=== PATIENT | male | born 1935 | race Caucasian/White ===

== ENCOUNTER → 2018-02-16 | Day surgery (SDC) | payer MEDICARE, OTHER, SELFPAY | END | disposition home or self-care (01) | PROVIDERS: Family Provider Family Medicine; PCP Family Medicine; Visit Provider Ophthalmology | DX: H25.11 Age-related nuclear cataract, right eye (principal); I10 Essential (primary) hypertension; Z53.09 Procedure and treatment not carried out because of other contraindication | CPT/HCPCS: 66984 ==

== ENCOUNTER → 2019-06-20 11:41 | Outpatient (CLI) | payer MEDICARE, OTHER, SELFPAY ==
--- NOTE | 2019-06-20 | DI.US.S_ITS ---
PROCEDURE: US RENAL COMPLETE INDICATIONS: Chronic kidney disease, stage 3 (moderate) TECHNIQUE: Real-time scanning was performed of the kidneys and bladder, with image documentation. COMPARISON: None. FINDINGS: Kidneys: Kidneys are normal in size. Right kidney measures 9.4 cm long; left kidney measures 10.8 cm long. Right renal cortical thickness is 1.4 cm; left renal cortical thickness is 1.2 cm. Renal cortical echotexture is increased bilaterally. No hydronephrosis or nephrolithiasis. No suspicious solid mass lesions. Bilateral renal cyst, largest which is on the right measuring up to 6.6 cm. Bladder: Pre-void bladder volume is 163 mL. Post-void residual is 0 mL. Pre-void images demonstrate no intraluminal masses or stones. On pre-void images, bilateral ureteral jets are noted with color Doppler interrogation. (Of note, ureteral jets may not be detectable in up to 25% of cases due to insufficient differences in specific gravity between ureteral and bladder urine). Miscellaneous: No free pelvic fluid. IMPRESSION: 1. Increased renal cortical echogenicity bilaterally consistent with medical renal disease and there are bilateral renal cysts. Dictated by: Giovany MILLER Interpreted: Chuckie Oh MD on 06/20/2019 at 13:22 Approved by: Chuckie Oh M.D. on 06/20/2019 at 14:24
== END ==
PROVIDERS: Family Provider Family Medicine; PCP Family Medicine; Visit Provider Internal Medicine Nephrology
DX: N18.3 Chronic kidney disease, stage 3 (moderate) (principal)
CPT/HCPCS: 76770

== ENCOUNTER → 2019-12-05 13:13 | Outpatient (CLI) | payer MEDICARE, OTHER, SELFPAY ==
--- NOTE | 2019-12-05 | DI.RAD.S_ITS ---
PROCEDURE: XR HIP W PEL IF DONE RT 2V INDICATIONS: PAIN IN HIP TECHNIQUE: 2 view(s) of the hip acquired. COMPARISON: None. FINDINGS: Bones: Patient is status post right hip arthroplasty, with hardware components in expected positions. The hip joint appears congruent. The visualized bony structures appear intact. Soft tissues: Overlying postoperative changes are noted. No suspicious soft tissue densities. IMPRESSION: Status post right hip arthroplasty without acute hardware complication. Dictated by: Km Gonzalez M.D. on 12/05/2019 at 17:15 Approved by: Km Gonzalez M.D. on 12/05/2019 at 17:15
== END ==
PROVIDERS: Family Provider Family Medicine; PCP Family Medicine; Referring Provider Nurse Practitioner; Visit Provider Nurse Practitioner
DX: M25.551 Pain in right hip (principal); Z96.641 Presence of right artificial hip joint
CPT/HCPCS: 73502

== ENCOUNTER → 2019-12-07 11:55 | Outpatient (CLI) | payer MEDICARE, OTHER, SELFPAY ==
--- NOTE | 2019-12-07 | DI.RAD.S_ITS ---
PROCEDURE: XR TOE LT MIN 2V INDICATIONS: left 2nd toe injury TECHNIQUE: 3 views of the left toe(s) acquired. COMPARISON: None. FINDINGS: Bones: No fractures or dislocations. No suspicious bony lesions. Diffuse osteopenia and scattered interphalangeal joint degeneration. Marginal lucency seen at the first MTP joint, technically age-indeterminate. Soft tissues: No suspicious soft tissue densities. Scattered vascular calcifications. IMPRESSION: No fracture. If the patient's symptoms do not improve recommend followup radiographs in 10 days to assess for healing sclerosis/occult injury, versus cross-sectional imaging evaluation. Decreased study diagnostic sensitivity due to diffuse osteopenia and arthritic changes. Dictated by: Froylan Hodgson M.D. on 12/07/2019 at 17:18 Approved by: Froylan Hodgson M.D. on 12/07/2019 at 17:21
== END ==
PROVIDERS: Family Provider Family Medicine; PCP Family Medicine; Referring Provider Nurse Practitioner; Visit Provider Nurse Practitioner
DX: S99.922A Unspecified injury of left foot, initial encounter (principal); M85.872 Other specified disorders of bone density and structure, left ankle and foot; X58.XXXA Exposure to other specified factors, initial encounter
CPT/HCPCS: 73660

== ENCOUNTER → 2019-12-19 09:10 | Outpatient (CLI) | payer SELFPAY ==
--- NOTE | 2019-12-19 | DI.US.S_ITS ---
PROCEDURE: US PERIPH VENOUS LOW EXTREM RT INDICATIONS: POSSIBLE DVT TECHNIQUE: Real-time imaging, as well as color and pulse Doppler interrogation, were performed of the lower extremity deep veins from the inguinal ligament to the popliteal fossa. COMPARISON: None. FINDINGS: The common femoral, femoral and popliteal veins are normally compressible, and free of intraluminal thrombus. Color and pulse Doppler demonstrate normal phasic intraluminal flow. There is normal augmentation response to distal compression maneuver. IMPRESSION: No DVT found. Dictated by: Chuckie Oh M.D. on 12/19/2019 at 10:27 Approved by: Chuckie Oh M.D. on 12/19/2019 at 11:11
== END ==
PROVIDERS: Family Provider Family Medicine; PCP Family Medicine; Referring Provider Family Medicine; Visit Provider Internal Medicine
DX: I82.401 Acute embolism and thrombosis of unspecified deep veins of right lower extremity (principal)
CPT/HCPCS: 73502; 93971

== ENCOUNTER 2020-06-06 06:12 | Inpatient (IN) | payer MEDICARE, OTHER, SELFPAY ==
[2020-06-05 11:44] VITALS: BMI 25.2
[2020-06-06] VITALS (23 sets, daily range): BP systolic 79–130; BP diastolic 44–81; PULSE 43–62; RESP 10–18; TEMP 35.3–36.4; O2SAT 93–100; BMI 24.6
--- NOTE | 2020-06-06 | DI.RAD.S_ITS ---
PROCEDURE: XR LUMBAR SPINE 2-3V INDICATIONS: L3-S1 LAMINECTOMIES ANTERIOR / POST INSTRUMENTATION TECHNIQUE: 2 views of the lumbar spine were acquired. COMPARISON: [facility], CR, XR LUMBAR SPINE 2 OR 3 VIEWS, 04/15/2020, 14:29. [facility], MR, MR LUMBAR SPINE WITHOUT CONTRAST, 03/15/2020, 13:36. FINDINGS: There is laminectomy, discectomy and posterior fusion at L3-S1. Pedicular screws and fusion rods are in expected position. IMPRESSION: Laminectomy, discectomy and posterior fusion at L3-S1. Dictated by: Chele De La Rosa M.D. on 06/06/2020 at 13:43 Approved by: Chele De La Rosa M.D. on 06/06/2020 at 13:44
[2020-06-06] MEDS: LACTATED RINGERS 1,000 ML 42 ML IV ×3 (07:00→12:09)
--- NOTE | 2020-06-06 07:03 | PM.PREOP ---
Pre-operative Note COVID-19 COVID-19 status: Negative Result date/Date tested (Pos, Neg/Pending): 06/04/20 Interval Note History & Physical reviewed/Exam performed by Physician: Yes Changes to H&P: No
[2020-06-06] MEDS: CEFAZOLIN 2 GM/100 ML FROZ.PIGGY IV ×3 (07:52→21:12)
--- NOTE | 2020-06-06 08:38 | SUR.OPER ---
Right lateral on padded OR table. Head on pillow, gel axillary roll, pillow to support left arm. Legs flexed, pillows between legs, gel pad under down leg and ankle. Multiple passes of 3 inch cloth tape across shoulder, hip, upper and lower legs to secure patient on OR table.
--- NOTE | 2020-06-06 08:38 | SUR.OPER ---
Prone on spine table, head in foam head support, padded chest and pelvic supports, gel pad at knees, lower legs supported by pillows; nipples, genitalia and toes free of pressure, arms secured on foam padded arm boards at <90 degrees abduction. Tape over blanket at thigh secured to table.
[2020-06-06] MEDS: SODIUM CHLORIDE 0.9% 1,000 ML, GENTAMICIN 80 MG IRR (08:49)
[2020-06-06] MEDS: VANCOMYCIN 1,000 MG VIAL 1000 MG TOP (08:50)
[2020-06-06] MEDS: BUPIVACAINE 0.5% (PF) 4 ML, MORPHINE-PF 4 MG, BUTORPHANOL 1 MG, fentaNYL 100 MCG INJ (08:51)
[2020-06-06] MEDS: THROMBIN (RECOMBINANT) 5,000 UNIT VIAL 5000 UNIT TOP (08:53)
--- NOTE | 2020-06-06 12:57 | P.OP_ITS ---
Operative Date/Time/Diagnoses Date of procedure: 06/06/20 Time of procedure: 12:57 Pre-op diagnosis: Lumbar stenosis with radiculopathy Lumbar spondylolisthesis Post-op diagnosis: same Procedure & Clinicians Procedure: L3-4, L4-5 anterior fusion with cages L5-S1 TLIF (posterior/posterior interbody fusion) with cage L3-L4-L5-S1 screws Iliac crest bone graft aspirate L3-4, L4-5, L5-S1 laminectomies Use of microscope Placement of epidural catheter Same procedure as scheduled: Yes Indications: [age] year old male with intractable pain from stenosis. They had failed conservative management and requested operative intervention. Risks and benefits of surgery were discussed and appropriate consents were obtained. Surgeon: Freddie Farooq Clinical Product Manager: Marie Najera Anesthesia Type: General Operative Notes Findings: None Closure Type: primary Specimen(s): none sent Prosthetic devices, grafts, tissues, transplants, or devices: NuVasive XLIF cages and MAS Reline screws Globus Sable cage Applied: catheter Estimated Blood Loss (mL): 50 Blood products transfused: none Procedure in detail: Patient was brought to the operating room and intubated on the table. Time-out was performed. They were then rolled over to the lateral decubitus position with the [id number]. The table was bent and they were taped down in the correct position. X-rays were taken to confirm a true AP and lateral. Preoperative antibiotics were given. The left flank was prepped and draped in standard sterile fashion. Using fluoroscopy, a 3 cm incision was made above the iliac crest. We bluntly dissected down with Metzenbaum scissors and split the 3 abdominal muscle layers. We dissected out the retroperitoneal space and using finger guidance, brought our 1st dilator down to the psoas muscle. Using neuromonitoring and fluoroscopy, we placed it through the psoas onto the L4-5 disc space in an anterior position and gradually pulled the dilator posteriorly along the disc space. We placed our guidewire and measured our depth for the retractor. We then dilated with the next 2 dilators and then placed our retractor over the dilators. Position was confirmed with fluoroscopy and the retractor was locked down to the bar. We opened up the retractor and checked with neuro monitoring. We then placed the britni and again checked with neuro monitoring. The retractor was opened further and the ALL retractor was placed. An annulotomy was performed. We then performed a complete diskectomy with ring curette, pituitary, box osteotome. A Dc was advanced across the disc space under fluoroscopy to release the lateral annulus on the opposite side. We then used sequentially larger trials and confirmed under fluoroscopy. An XLIF cage was packed with Osteocel bone graft and impacted into the L4-5 disc space with fluoroscopy for the anterior fusion at this level. The wound was irrigated. The retractor was closed down. The britni was removed. We carefully removed the retractor with direct visualization to make sure there was no neurovascular or abdominal injury. We then moved our dilator up to the L3-4 level. We again dilated with neural monitoring and fluoro. We opened up the retractor and placed our Britni. A complete diskectomy was performed including lateral release. We trialed and placed another cage with bone graft into the L3-4 anterior disc space for the anterior fusion at L3-4. The wound was irrigated. The retractor was removed under direct visualization. Final x-rays were taken. The muscle fascia was closed, superficial tissue was closed. The skin was close d. Sterile dressing was placed. The patient was then rolled over on the well- padded prone position on the Wilfredo table. Using fluoroscopy for localization, a 8 cm incision was made to the right of the midline. Bovie used to split the lumbodorsal fascia. We then percutaneously placed Jamshidi needles down the right pedicles of L3, L4, L5, and S1 using fluoroscopy and neural monitoring. These were changed out to guidewires and then tapped and the screw shanks were placed. We opened up the retractor at L5-S1. We cleared out the gutter and decorticated the L5 transverse process and the sacral ala with a bur. We cleared medially and exposed the lamina. We brought in the microscope. Using a bur and Kerrison rongeur is, a laminectomy was performed at L5-S1. We performed a facetectomy to be able to decompress the neural foramen adequately. At the end we could sweep the ball probe cephalad, through the foramen, caudally and across the midline and everything was adequately opened. We then began the prep for the TLIF. The remaining edges of the facet were cleared back. The dura was retracted medially and the exiting nerve root was carefully protected. We exposed the disc in cleared out with bipolar. A stab incision was made with a scalpel. We removed the posterior osteophytes with a Kerrison. We then placed our sequentially larger paddles into the disc space disc retracting it open. We used curettes and pituitaries to clear the endplates. Bone graft was placed into the disc space. We then placed our globus Sable cage using fluoroscopic guidance and then expanded it under fluoroscopy. We then back filled with additional bone graft. This completed the posterior interbody portion of the TLIF at L5-S1. We then moved our retractors up to L4-5. The gutter was cleared out and the L4 transverse process was decorticated. Again a combination of bur and Kerrisons were used to perform a complete laminectomy at L4-5. We depressed the dura and reach the opposite side and removed the facet and ligamentous hypertrophy. In the end the ball probe could be swept cephalad caudally and out the foramen and it was open. We then went up to the L3-4 level and opened up her retractors. Again the gutter was cleared of the transverse process of L3 was decorticated. Again a combination of bur and Kerrisons were used to perform a complete laminectomy at L3-4. We depressed the dura and reach to the opposite side to clear this out. In the end the ball probe to swept cephalad and caudally and out to the foramen and everything was open. The wound was copiously irrigated. An epidural catheter was primed with 4mL of 0.5% bupivacaine, 100 mcg fentanyl, 4 mg Duramorph, 1 mg Stadol. The dura was depressed under the cephalad lamina with a ball probe and the epidural catheter was gently advanced 6 cm cephalad. We then placed our screw heads on the shanks. Boris was measured and placed and locked down. A small stab incision was made over the right PSIS. A Jamshidi needle was inserted into the pelvis and 6 mL of bone marrow aspirate was removed with multiple passes. This was mixed with the locally harvested graft plus the remaining Osteocel and placed in the gutter for the posterior fusion at L3-4 and L4-5 as well as the posterolateral portion of the TLIF at L5-S1. The fascia was then closed. The epidural was then injected without resistance. The catheter was pulled and we closed more over the fascia. Using fluoroscopy, a 8 cm incision was made on the left side. Bovie used to split the fascia. We then percutaneously placed Jamshidi needles down the ped icles of L3, L4, L5, and S1 on the left using fluoroscopy and neural monitoring. We used guidewires and then tapped and placed our screws. We measured and placed down our boris and locked it down. Final x-rays were taken. The wounds were irrigated. The fascia was closed. Vancomycin powder was placed in the wounds. The superficial and skin were closed. Sterile dressing was placed. The patient was then rolled over, extubated, brought to the recovery room with no complications. Complications: none Post-operative Condition: stable Disposition: PACU Plan for aftercare: Inpatient. Up with PT. Anticipate 3 days in the hospital.
--- NOTE | 2020-06-06 13:43 | SUR.PHASEI ---
After multiple attempts with two different thermometers, still unable to obtain a temperature over 96. Placed bear hugger to patient.
--- NOTE | 2020-06-06 13:55 | SUR.PHASEI ---
Patient more responsive. Oral airway removed. Patient following commands. Temporal temperature up to 96.9 now. HR 52, Bp 115/62
--- NOTE | 2020-06-06 15:25 | PC.NURSE ---
Patient to floor at 1455, tucked in and vss. Report passed onto jordy RN.
--- NOTE | 2020-06-06 19:25 | PC.NURSE ---
Addendum entered by Yolanda Epps R.N. 06/06/20 22:25: Pt resting quietly this evening. States only slight discomfort at times, declines any med. IVF infusing as per orders. Satisfactory post op course. Call light w/in reach, bed alarm on for pt safety. Continue w/plan of care. Original Note: Pt resting quietly this afternoon. Dsg to back & lft flank intact. SpO2 97% RA [place] cath patent clear urine Stable post op course.
[2020-06-06] MEDS: LACTATED RINGERS 1,000 ML 125 ML IV (19:37)
[2020-06-06] MEDS: ATORVASTATIN 20 MG TABLET PO (19:41)
[2020-06-06] MEDS: AMLODIPINE 5 MG TABLET PO (19:41)
[2020-06-06] MEDS: CELECOXIB 200 MG CAPSULE 400 MG PO (19:41)
[2020-06-06] MEDS: METOPROLOL ER 25 MG TABLET PO (19:44)
[2020-06-06] MEDS: GABAPENTIN 300 MG CAPSULE PO (21:03)
[2020-06-06] MEDS: SENNOSIDES 8.6 MG TABLET 17.2 MG PO (21:03)
[2020-06-06] MEDS: DOCUSATE 100 MG CAPSULE PO (21:03)
[2020-06-06] MEDS: CELECOXIB 200 MG CAPSULE PO (22:31)
[2020-06-06] MEDS: TIMOLOL 0.5% OPHTH 1 DROPS EYE-BOTH (22:35)
--- NOTE | 2020-06-07 01:31 | PC.NURSE ---
Patient seen and assessed at 0017. Is alert and oriented. Breath sounds CTA with RA sat of 99%; on continuous oximetry. HRR. Denies nausea. BT present but has not yet passed flatus since return from surgery. Indwelling catheter is patent; urine is clear yellow. Is able to turn with assistance but prefers to be on back. Dressing to back is intact but mostly saturated with serosanguinous drainage; no leakage. Dressing to left hip is intact with dime size area of brown drainage. Has dark skin on bilateral forearms with bruising. CMS is intact. Denies pain. Bilateral calf SCD's applied. Fall risk score is moderate; bed alarm is activated.
[2020-06-07 03:19] VITALS: BP 107/55; PULSE 71; RESP 16; TEMP 36.2; O2SAT 100
[2020-06-07] MEDS: LACTATED RINGERS 1,000 ML 125 ML IV (03:22)
[2020-06-07] MEDS: CEFAZOLIN 2 GM/100 ML FROZ.PIGGY IV (04:59)
[2020-06-07 06:17] LABS: Hematocrit 26.5 % (41-53); Hemoglobin 8.8 g/dL (13.5-17.5)
[2020-06-07 06:22] LABS: Blood Urea Nitrogen 50 mg/dL (9-20); Calcium 8.7 mg/dL (8.4-10.2); Carbon Dioxide 19 mmol/L (22-32); Chloride 111 mmol/L (98-107); Estimated Glomerular Filt Rate 29.2 mL/min (>60); Glucose 172 mg/dL (80-110); HEMOLYSIS < 15 (0-50); Potassium 4.8 mmol/L (3.4-5.1); Sodium 135 mmol/L (137-145)
--- NOTE | 2020-06-07 08:34 | CM.IDA ---
Addendum entered by GEOFF Petersen 06/07/20 15:37: PT recommending home w/spouse to assist and patient eager to do so. No needs expected from this PUBLICATION SPECIALIST but will follow closely in case any DC needs or concerns arise. DENINS Original Note: Initial DCP Assessment Note Pt is a 85yo male, resident of [place], now POD#1 from spinal surgery w/ Dr Farooq PCP: Stanley Marsh Payer: GANGA/Jody Reviewed chart. Therapy pending this morning, pt has planned for home w/spouse Giana (), . This PUBLICATION SPECIALIST following closely and will plan to assess needs once therapy has an opportunity to eval. GEOFF Petersen
[2020-06-07 08:37] VITALS: BP 118/67; PULSE 64; RESP 15; TEMP 36.6; O2SAT 98
--- NOTE | 2020-06-07 08:46 | PM.PNPO.1 ---
Subjective Subjective Date Patient Seen: 06/07/20 Time Patient Seen: 08:46 Interval history: He is doing well. Minimal pain. Has not been up yet. Exam Vital Signs (past 8 hours): - 06/07/20 03:19 Temperature 97.2 F L Pulse Rate 71 Respiratory Rate 16 Blood Pressure 107/55 L Pulse Oximetry 100 Oxygen Delivery Method Room Air Oxygen Flow Rate 0 Const Orientation: alert and oriented x3 Back/Spine/Pelvis Other: Moderate drainage. 5/5 motor both lower extremities. Objective Labs Result Diagrams: 06/07/20 05:50 06/07/20 05:50 Labs: Laboratory Results - last 24 hr 06/07/20 06/07/20 05:50 05:50 Hgb 8.8 L Hct 26.5 L Sodium 135 L Potassium 4.8 Chloride 111 H Carbon Dioxide 19 L BUN 50 H Creatinine 2.17 H Estimated GFR 29.2 L BUN/Creatinine Ratio 23.0 H Glucose 172 H Calcium 8.7 Assessment & Plan Post-op Postoperative Procedures: Procedures Operation Date: 06/06/20 07:45 Actual Procedures Side Surgeon p L3-S1 laminectomies & anterior/posterior instrumentated fusion w/ bone graft Freddie Farooq MD Doing well after his laminectomy and fusion. Mobilize today with physical therapy. He has some postoperative acute blood loss anemia and we will recheck his H&H in the morning. He is asymptomatic from this right now.
[2020-06-07] MEDS: TIMOLOL 0.5% OPHTH 1 DROPS EYE-BOTH ×2 (09:04→20:14)
[2020-06-07] MEDS: METOPROLOL ER 25 MG TABLET PO (09:05)
[2020-06-07] MEDS: CYANOCOBALAMIN (VITAMIN B-12) 500 MCG TABLET 1000 MCG PO (09:05)
[2020-06-07] MEDS: CELECOXIB 200 MG CAPSULE PO ×2 (09:05→20:09)
[2020-06-07] MEDS: allopurinoL 300 MG TABLET PO (09:05)
[2020-06-07] MEDS: hydroCHLOROthiazide 12.5 MG CAPSULE PO (09:05)
[2020-06-07] MEDS: AMLODIPINE 5 MG TABLET PO (09:05)
[2020-06-07] MEDS: DOCUSATE 100 MG CAPSULE PO ×2 (09:05→20:08)
[2020-06-07] MEDS: lisinopriL 20 MG TABLET PO (09:05)
[2020-06-07] MEDS: CHOLECALCIFEROL (VITAMIN D3) 1,000 UNIT TABLET 1000 UNIT PO (09:06)
[2020-06-07] MEDS: HYDROCODONE/ACET 5/325 TABLET 1 TAB PO ×3 (09:07→20:08)
--- NOTE | 2020-06-07 11:00 | PT.IIE ---
Current Diagnoses Spondylolisthesis, lumbar region (06/06/20) Spinal stenosis, lumbar region with neurogenic claudication (06/06/20) Surgery Performed Operation Date: 06/06/20 07:45 Actual Procedures p L3-S1 laminectomies & anterior/posterior instrumentated fusion w/ bone graft - Freddie Farooq MD Surgical History (This Medical Record has been edited. Action required.) History of right cataract extraction (Acute) Hx of heart artery stent (Acute ~01/2010) Hx of prostatectomy (Acute ~2004) Medical History (This Medical Record has been edited. Action required.) Acute DVT (deep venous thrombosis) (Acute 11/2019) CKD (chronic kidney disease), stage IV (Acute) Hip fracture, right (Acute ~11/2019) Prostate cancer (Acute) Physical Therapy Inpatient Evaluation/Re-Eval M1 PT/OT-IP Prior Functional Status Start: 06/07/20 13:24 Freq: NEEDED Status: Active Protocol: Document 06/07/20 11:00 AB (Rec: 06/07/20 13:37 AB [id number]) Medical Review Prior Functional Status Medical History Reviewed Yes Communication able to make needs known Mobility and Gait pt stated that he is independent with all mobilities and ambulation without AD Social History Household Members spouse Living Arrangements House Number of Floors (Floors) One Floor Number of Stairs To Enter/Railing? 2 steps L rail to enter Home Environment Standard Height Toilet,Tub/ Shower Home Equipment Front Wheel Walker,Four Wheel Walker,Quad Cane,Straight Cane ,Bedside Commode,Hand Held Shower Additional Social History Comment lives in [place] [id number] PT-IP Current Condition Start: 06/07/20 13:24 Freq: NEEDED Status: Active Protocol: Document 06/07/20 11:00 AB (Rec: 06/07/20 13:37 AB [id number]) Physical Therapy Current Condition Current Condition Evaluation Date 06/07/20 Treatment Diagnosis s/p L3-4, L4-5 anterior fusion ; L5S1 TLIF; difficulty in walking Onset Date 06/06/20 Precautions Lumbar Precautions Log Roll,No Twisting,Limit Bending,Lifting Restriction of 10 lbs,Gait Belt above Incisional Area M3 PT-IP Subjective Start: 06/07/20 13:24 Freq: NEEDED Status: Active Protocol: Document 06/07/20 11:00 AB (Rec: 06/07/20 13:37 [id number]) Subjective Physical Therapy Visit Type Type Initial Evaluation Visit Start Time 11:00 Visit Stop Time 11:50 Total Visit Minutes 50 Number of HEAD OF STOCK Visits 0 Physical Therapy Visit Comments Patient Comments agreeable to do PT Therapy Pain Assessment Pain When Pain Assessed At Rest Pain Present Pain Present Pain Reported Location Lower Back Intensity 1 Scale Used increase 3/10 with mobility Pain Management Techniques Modification of Treatment,Re- positioning,Timing of Activity with Medications M4 PT-IP Mobility and Gait Start: 06/07/20 13:24 Freq: NEEDED Status: Active Protocol: Document 06/07/20 11:00 AB (Rec: 06/07/20 13:37 [id number]) PT-Bed Mobility Assessment Rolling Type of Rolling Log Rolling Level of Assist Standby Assistance Supine to Sit Supine to Sit Standby Assistance PT-Transfer Assessment Sit to and From Stand Sit to and from Stand Minimal Assistance,1 Person Assistance,Use of Upper Extremities Equipment Transfer Assistive Device Gait Belt,Front Wheeled Walker Orthotic/Prosthetic Devices or Brace: No Transfers Transfer Destination Chair Transfer Technique ambulated using FWW Transfer Ability Level of Assist Minimal Assistance,1 Person Assistance,Use of Upper Extremities Comments Mobility Comments educated pt on back precautions and log roll bed mobility. BP in supine: 118/ 72. completed supine to sit with cues SBA. pt was able to sit on EOB SBA. c/o dizziness. BP: 125/57 . completed sit to stand min A and cues and ambulated to the chair using FWW min A. pt rested. BP after ambulation: 132/76. pt agreed to ambulate more and completed ~ 35 ft using FWW min A and cues. pt agreed to sit up on chair. positioned on chair. call light and table placed within reach. Gait Assessment Gait Gait Assistance Required: Minimum Assistance Distance (Feet) 35 Able to Maintain Weight Bearing Status Yes During Gait Assistive Devices Assistive Device Gait Belt,Front Wheeled Walker Orthotic/Prosthetic Devices or Brace: No Gait Deviations General Gait Pattern Antalgic,Decreased Stride Length,Decreased Feet Clearance Factors Limiting Gait Function Factors Limiting Gait Function Decreased Activity Tolerance, Decreased Strength,Limited Range of Motion,Pain,Poor Balance Comments Gait Comments pls refer to mobility section for details PT-Balance Assessment Sitting Balance and Reactions Static Sitting Balance Ability Good Dynamic Sitting Balance Ability Good Standing Balance and Reactions Static Standing Balance Ability Fair Dynamic Standing Balance Ability Fair Device Used FWW M5 PT-IP Objective Assessments Start: 06/07/20 13:24 Freq: NEEDED Status: Active Protocol: Document 06/07/20 11:00 AB (Rec: 06/07/20 13:37 [id number]) Orientation Orientation/Cognition Level of Alertness Alert Orientation Name,Age,Birthday,Month,Date, Year,Day of Week,Place, Situation Gross Range of Motion Lower Extremity ROM Assessment Within Functional Limits Strength Lower Extremity Strength Assessment Within Functional Limits Coordination Assessment Gross Coordination Gross Coordination WNL Sensation Assessment Sensation Gross Sensation WNL Muscle Tone Muscle Tone WNL Yes M6 PT-IP Treatment Start: 06/07/20 13:24 Freq: NEEDED Status: Active Protocol: Document 06/07/20 11:00 AB (Rec: 06/07/20 13:37 [id number]) Physical Therapy Treatment Education Education Provided Precautions,Weight Bearing Status,Post-Op Packet,Safety M7 PT-IP Assessment and Plan Start: 06/07/20 13:24 Freq: NEEDED Status: Active Protocol: Document 06/07/20 11:00 AB (Rec: 06/07/20 13:37 [id number]) PT Summary Assessment and Plan Potential Rehabilitation Potential Good Status of Condition at Evaluation Stable Summary Impairments Pain,ROM,Strength,Balance,Bed Mobility,Transfers,Gait, Activity Tolerance Assessment Summary pt is requiring min A with mobility and is planning to go home with spouse to assist him. will conduct caregiver training when appropriate and also complete stair climbing prior to d/c. Goals Bed Mobility Goal Independent Transfer Goal Independent,Front Wheeled Walker Gait Goal Independent,Front Wheel Walker Gait Distance 200 Other Goals up/down 2 steps L rail SBA Days to Meet Goals 5 Frequency of Treatment Frequency Of Treatment Twice a Day Treatment Plan Physical Therapy Treatment Plan Bed Mobility Training,Transfer Training,Gait Training, Therapeutic Exercise,Balance Retraining,Post Op Education, Discharge Planning,Hot or Cold Pack,Neuromuscular Re-ed, Coordination Retraining,Manual Therapy Other Recommendations and Next Treatment bed mobility, ambulation, Focus stair climbing Recommendations To Nursing Amount of Assist Needed 1 Person Assist Discharge Recommendations PT Discharge Recommendations Home with Assistance Transportation Needs at Discharge Private Vehicle
[2020-06-07 12:55] VITALS: BP 107/64; PULSE 67; RESP 19; TEMP 36.8; O2SAT 97
[2020-06-07 13:08] VITALS: O2SAT 97
--- NOTE | 2020-06-07 14:30 | PT.IPTN ---
Current Diagnoses Spondylolisthesis, lumbar region (06/06/20) Spinal stenosis, lumbar region with neurogenic claudication (06/06/20) Surgery Performed Operation Date: 06/06/20 07:45 Actual Procedures p L3-S1 laminectomies & anterior/posterior instrumentated fusion w/ bone graft - Freddie Farooq MD Physical Therapy Treatment Note M2 PT-IP Current Condition Start: 06/07/20 13:24 Freq: NEEDED Status: Active Protocol: Document 06/07/20 11:00 AB (Rec: 06/07/20 13:37 AB [id number]) Physical Therapy Current Condition Current Condition Evaluation Date 06/07/20 Treatment Diagnosis s/p L3-4, L4-5 anterior fusion ; L5S1 TLIF; difficulty in walking Onset Date 06/06/20 Precautions Lumbar Precautions Log Roll,No Twisting,Limit Bending,Lifting Restriction of 10 lbs,Gait Belt above Incisional Area M3 PT-IP Subjective Start: 06/07/20 13:24 Freq: NEEDED Status: Active Protocol: Document 06/07/20 14:30 AB (Rec: 06/07/20 16:25 AB [id number]) Subjective Physical Therapy Visit Type Type Treatment Note Visit Start Time 14:30 Visit Stop Time 14:55 Total Visit Minutes 25 Number of WATER SUPPLY TECHNICIAN Visits 0 Physical Therapy Visit Comments Patient Comments pt is agreeable to do PT Therapy Pain Assessment Pain When Pain Assessed At Rest Pain Present Pain Present Pain Reported Location Lower Back Intensity 3 Scale Used Numeric (0 - 10) Pain Management Techniques Re-positioning,Timing of Activity with Medications M4 PT-IP Mobility and Gait Start: 06/07/20 13:24 Freq: NEEDED Status: Active Protocol: Document 06/07/20 14:30 AB (Rec: 06/07/20 16:25 AB [id number]) PT-Bed Mobility Assessment Rolling Type of Rolling Log Rolling Level of Assist Standby Assistance Supine to Sit Supine to Sit Standby Assistance Sit to Supine Sit to Supine Standby Assistance Scooting Scooting to Edge of Bed Standby Assistance PT-Transfer Assessment Sit to and From Stand Sit to and from Stand Contact Guard Assistance,1 Person Assistance,Use of Upper Extremities Equipment Transfer Assistive Device Gait Belt,Front Wheeled Walker Orthotic/Prosthetic Devices or Brace: No Transfers Transfer Technique ambulated using FWW Transfer Ability Level of Assist Contact Guard Assistance,1 Person Assistance,Use of Upper Extremities Comments Mobility Comments BP: sittin/55. completed sit to stand from chair CGA and ambulated in room ~ 50 ft. BP after ambulation 133/75. bed mobility training: pt completed supine<>sit x 2 sets SBA with cues on first attempt but was able to complete without cues on 2nd. pt ambulated back to the chair using FWW SBA. positioned pt on chair. OT to see pt after PT. Pt agreed. call light and table placed within reach. Gait Assessment Gait Gait Assistance Required: Standby Assistance,Contact Guard Assist,1 Person Assist Distance (Feet) 50 Able to Maintain Weight Bearing Status Yes During Gait Assistive Devices Assistive Device Gait Belt,Front Wheeled Walker Orthotic/Prosthetic Devices or Brace: No Factors Limiting Gait Function Factors Limiting Gait Function Decreased Activity Tolerance, Decreased Strength,Pain,Poor Balance Comments Gait Comments pls refer to mobility section for details M5 PT-IP Objective Assessments Start: 06/07/20 13:24 Freq: NEEDED Status: Active Protocol: Document 06/07/20 11:00 AB (Rec: 06/07/20 13:37 AB [id number]) Orientation Orientation/Cognition Level of Alertness Alert Orientation Name,Age,Birthday,Month,Date, Year,Day of Week,Place, Situation Gross Range of Motion Lower Extremity ROM Assessment Within Functional Limits Strength Lower Extremity Strength Assessment Within Functional Limits Coordination Assessment Gross Coordination Gross Coordination WNL Sensation Assessment Sensation Gross Sensation WNL Muscle Tone Muscle Tone WNL Yes M6 PT-IP Treatment Start: 06/07/20 13:24 Freq: NEEDED Status: Active Protocol: Document 06/07/20 14:30 AB (Rec: 06/07/20 16:25 AB [id number]) Physical Therapy Treatment Education Education Provided Precautions,Safety M7 PT-IP Assessment and Plan Start: 06/07/20 13:24 Freq: NEEDED Status: Active Protocol: Document 06/07/20 14:30 AB (Rec: 06/07/20 16:25 AB [id number]) PT Summary Assessment and Plan Potential Rehabilitation Potential Good Summary Impairments Pain,ROM,Strength,Balance,Bed Mobility,Transfers,Gait, Activity Tolerance Progress Towards Goals Progressing Toward Goals Assessment Summary pt requires SBA to CGA with mobility and plans to go home with spouse. spouse requested for pt to just do stair climbing tomorrow and not today. pt may go home when medically stable. Goals Bed Mobility Goal Independent Transfer Goal Independent,Front Wheeled Walker Gait Goal Independent,Front Wheel Walker Gait Distance 200 Other Goals up/down 2 steps L rail SBA Days to Meet Goals 5 Frequency of Treatment Frequency Of Treatment Twice a Day Treatment Plan Physical Therapy Treatment Plan Bed Mobility Training,Transfer Training,Gait Training, Therapeutic Exercise,Balance Retraining,Post Op Education, Discharge Planning,Hot or Cold Pack,Neuromuscular Re-ed, Coordination Retraining,Manual Therapy Other Recommendations and Next Treatment bed mobility, ambulation, Focus stair climbing Recommendations To Nursing Amount of Assist Needed 1 Person Assist Discharge Recommendations PT Discharge Recommendations Home with Assistance Transportation Needs at Discharge Private Vehicle
--- NOTE | 2020-06-07 15:15 | OT.IP.EVAL ---
Current Diagnoses Spondylolisthesis, lumbar region (06/06/20) Spinal stenosis, lumbar region with neurogenic claudication (06/06/20) Surgery Performed Operation Date: 06/06/20 07:45 Actual Procedures p L3-S1 laminectomies & anterior/posterior instrumentated fusion w/ bone graft - Freddie Farooq MD Past Medical History (This Medical Record has been edited. Action required.) Acute DVT (deep venous thrombosis) (Acute 11/2019) CKD (chronic kidney disease), stage IV (Acute) Hip fracture, right (Acute ~11/2019) Prostate cancer (Acute) Surgical History (This Medical Record has been edited. Action required.) History of right cataract extraction (Acute) Hx of heart artery stent (Acute ~01/2010) Hx of prostatectomy (Acute ~2004) Occupational Therapy Inpatient Evaluation/Re-Eval M1 PT/OT-IP Prior Functional Status Start: 06/07/20 17:58 Freq: NEEDED Status: Active Protocol: Document 06/07/20 15:15 [facility] (Rec: 06/07/20 18:12 [facility] [id number]) Medical Review Prior Functional Status Medical History Reviewed Yes Communication able to make needs known Mobility and Gait pt stated that he is independent with all mobilities and ambulation without AD Activities of Daily Living and IADL's Completely independent with Adl and IADl needs Social History Household Members spouse Living Arrangements House Number of Floors (Floors) One Floor Number of Stairs To Enter/Railing? 2 steps L rail to enter Home Environment Standard Height Toilet,Tub/ Shower Home Equipment Front Wheel Walker,Four Wheel Walker,Quad Cane,Straight Cane ,Bedside Commode,Hand Held Shower Additional Social History Comment lives in [place] [id number] OT-IP Current Condition Start: 06/07/20 17:58 Freq: Status: Active Protocol: Document 06/07/20 15:15 [facility] (Rec: 06/07/20 18:12 [facility] [id number]) Occupational Therapy Current Condition Current Condition Evaluation Date 06/07/20 Treatment Diagnosis S/p L3-S1 lami and ant/post. inistr fusion Diagnosis Onset Date 06/06/20 Post Operative Precautions Lumbar Precautions Log Roll,No Twisting,Limit Bending,Lifting Restriction of 10 lbs,Gait Belt above Incisional Area M3 OT- IP Subjective and Pain Start: 06/07/20 17:58 Freq: Status: Active Protocol: Document 06/07/20 15:15 [facility] (Rec: 06/07/20 18:12 [facility] [id number]) OT- Subjective Occupational Therapy Visit Type Type Initial Evaluation Visit Start Time 15:15 Visit Stop Time 15:46 Total Visit Minutes 31 Occupational Therapy Visit Comments Patient Comments Pt agreed to get up for OT eval. Patient/Caregiver Goals To go home when stable. OT Pain Assessment Pain When Pain Assessed During Mobility Pain Present Pain Present Pain Reported Location Lower Back Intensity 2 Scale Used Numeric (0 - 10) M4 OT- IP ADL's Start: 06/07/20 17:58 Freq: Status: Active Protocol: Document 06/07/20 15:15 [facility] (Rec: 06/07/20 18:12 [facility] [id number]) OT [id number] Comments OT Self-Feeding Comments Not at meal time. OT ADL-Grooming General Evaluation Grooming Ability Standby Assistance Areas Needing Assistance Retrieving/Set-up of Grooming Items Comments OT Grooming Comments Pt able to show good safety to lean at hips to spit into the sink in order to follow his back precautions. Educated to keep the FWW in front of him during grooming needs for safety . OT ADL-Oral Care General Eval Oral Care Ability Independent OT ADL-Dressing General Eval Lower Body Dressing Ability Maximum Assistance Comments OT Dressing Comments Pt states his will assist to help put on his tight socks at home. Went over use of antenna design engineer to assist for brief and pants. Pt issued antenna design engineer and long handled shoe horn. OT ADL-Toileting General Evaluation Toileting Ability Standby Assistance Comments OT Toileting Comments Pt able to appropriately lean and reach to wipe and follow back precautions appropriately while sitting and standing with FWW. OT ADL-Bathing Comments OT Bathing Comments Pt wanting to try tomorrow to best determine whether he will need a shower chair or not a home form his tub/shower combo . M5 OT- IP IADL's Start: 06/07/20 17:58 Freq: Status: Active Protocol: Document 06/07/20 15:15 [facility] (Rec: 06/07/20 18:12 [facility] [id number]) OT-Instrumental Activities of Daily Living Home Safety Awareness Awareness of Need for Assistance at Home Good Awareness Ability to Problem Solve Emergency Able to Problem Solve Situations Medication Management Medication Management Comments Pt use of pill box. Money Management Money Management Comments Pt's pays the bills. Meal Preparation Meal Preparation Caregiver Provides Assist Operations Mgr Operations Mgr Caregiver Provides Assist M6 OT- IP Functional Cognition Start: 06/07/20 17:58 Freq: Status: Active Protocol: Document 06/07/20 15:15 [facility] (Rec: 06/07/20 18:12 [facility] [id number]) Cognitive Factors Limiting Selfcare Function Cognitive Ability Level of Alertness Alert Patient Orientation Name,Age,Birthday,Month,Date, Year,Day of Week,Place, Situation Attention Span Ability Capable of Focused Attention, Capable of Sustained Attention Ability to Follow Commands Able to Follow One Step Commands Memory Description No Deficits Noted Problem Solving Ability No deficits Noted OT- Vision and Hearing OT- Vision Assessment Visual Acuity Glasses All The Time M7 OT- IP Mobility and Balance Start: 06/07/20 17:58 Freq: Status: Active Protocol: Document 06/07/20 15:15 [facility] (Rec: 06/07/20 18:12 [facility] [id number]) OT-Transfer Assessment Sit to and From Stand Sit to and from Stand Contact Guard Assistance Transfers Transfer Ability Contact Guard Assistance Technique Transfer Destination Chair,Toilet Devices Transfer Assistive Devices Gait Belt,Front Wheeled Walker Comments Mobility Comments CGA with FWW , occasional steadying. OT- Balance Assessment Sitting Balance and Reactions Static Sitting Balance Ability Normal Dynamic Sitting Balance Ability Good Standing Balance and Reactions Static Standing Balance Ability Fair M9 OT- IP Assessment and Plan Start: 06/07/20 17:58 Freq: Status: Active Protocol: Document 06/07/20 15:15 [facility] (Rec: 06/07/20 18:12 [facility] [id number]) OT Summary Assessment and Plan Potential Rehabilitation Potential Good Analytic Complexity at Evaluation Low Summary OT Impairments Pain,Functional Mobility, Dressing,Toileting,Bathing, Toilet Transfers,Shower Transfers,Activity Tolerance Progress Towards Goals Progressing Toward Goals Assessment Summary Pt low complexity and main barriers are steps and will now need assist from his for ADl needs, especially to luis felipe his socks. Pt issued antenna design engineer and long handled shoe horn. Pt looking to go home when medically stable. OT to complete showering with pt tomorrow to help determine whether pt will need a shower chair at home. Goals Grooming Goal Independent Dressing Goal Minimal Assistance Toileting Goal Independent Bathing Goal Independent Toilet Transfer Goal Independent Shower Transfer Goal Independent Patient/Caregiver Education Goal Caregiver Independent Assisting Patient Days to Meet Goals 5 Frequency of Treatment Frequency Of Treatment Once a Day Treatment Plan OT Treatment Plan ADL Training,Functional Mobility,Patient/Family Education,Discharge Planning Other Treatment Recommendations and Next Shower Treatment Focus Discharge Recommendations OT Discharge Recommendations Home with Assistance Home Equipment Needs shower chair Transportation Needs at Discharge Private Vehicle
[2020-06-07 16:34] VITALS: BP 121/61; PULSE 60; RESP 16; TEMP 36.6; O2SAT 100
[2020-06-07] MEDS: GABAPENTIN 300 MG CAPSULE PO (20:08)
[2020-06-07] MEDS: ATORVASTATIN 20 MG TABLET PO (20:09)
[2020-06-07] MEDS: SENNOSIDES 8.6 MG TABLET 17.2 MG PO (20:09)
[2020-06-07 20:51] VITALS: BP 105/64; PULSE 79; RESP 16; TEMP 36.5; O2SAT 97
[2020-06-08] VITALS (16 sets, daily range): BP systolic 94–150; BP diastolic 49–74; PULSE 54–73; RESP 14–18; TEMP 36.1–36.8; O2SAT 95–99
[2020-06-08 06:21] LABS: Hematocrit 22.3 % (41-53); Hemoglobin 7.6 g/dL (13.5-17.5)
[2020-06-08] MEDS: CELECOXIB 200 MG CAPSULE PO ×2 (08:50→21:02)
[2020-06-08] MEDS: CHOLECALCIFEROL (VITAMIN D3) 1,000 UNIT TABLET 1000 UNIT PO (08:50)
[2020-06-08] MEDS: CYANOCOBALAMIN (VITAMIN B-12) 500 MCG TABLET 1000 MCG PO (08:50)
[2020-06-08] MEDS: allopurinoL 300 MG TABLET 150 MG PO (08:50)
[2020-06-08] MEDS: TIMOLOL 0.5% OPHTH 1 DROPS EYE-BOTH ×2 (08:51→21:03)
[2020-06-08] MEDS: DOCUSATE 100 MG CAPSULE PO ×2 (08:51→21:02)
[2020-06-08] MEDS: HYDROCODONE/ACET 5/325 TABLET 1 TAB PO ×3 (08:52→21:07)
--- NOTE | 2020-06-08 08:54 | PM.PN.1 ---
Subjective Subjective Date Patient Seen: 06/08/20 Time Patient Seen: 08:54 Interval history: Patient doing well, pain well controlled. Does complain of some wooziness this morning that he notices both with transfers and while at rest in chair. Denies any nausea or vomiting, no new radicular complaints. Exam Vital Signs (past 8 hours): - 06/08/20 04:00 06/08/20 08:00 Temperature 97.9 F 98.0 F Pulse Rate 70 58 L Respiratory Rate 16 16 Blood Pressure 102/49 L 109/54 L Pulse Oximetry 95 95 Oxygen Delivery Method Room Air Oxygen Flow Rate 0 Narrative Exam Narrative: Pleasant 85 year old male resting in chair eating breakfast. Dressing in place over left side is intact with old drainage. Dressing to lumbar spine was changed yesterday by nursing staff and reinforced overnight with moderate serosangenous drainage. Removed to reveal intact incisions, no active drainage and no drainage with palpation. Small area of fluctuance under the left incision with no erythema. Objective Labs Result Diagrams: 06/08/20 05:45 06/07/20 05:50 Labs: Laboratory Results - last 24 hr 06/08/20 05:45 Hgb 7.6 L Hct 22.3 L Assessment & Plan Assessment & Plan narrative: Patient with post operative anemia, repeat H&H this morning 7.6/22.3 and hypotensive/symptomatic. Will give 2 units PRBC and recheck. Hold BP medications for now. May work with PT this afternoon if symptoms resolve. Consider discharge tomorrow.
--- NOTE | 2020-06-08 09:30 | PT-IP ANOTE ---
Per nursing, pt on hold d/t receiving blood/ low H&H this AM. Will check back in PM to see if patient is appropriate for therapy.
--- NOTE | 2020-06-08 10:51 | PC.NURSE ---
Addendum entered by Asmita Montague R.N. 06/08/20 14:34: Patient resting with eyes closed in chair. Second Unit is currently infusing, patient tolerating well. Denies itching, SOB, flushing, chills or headache. Back dsg is CDI, left hip dsg has half dollar size shadow drainage. Patient denies pain at this time. Call light in reach. Original Note: Late note: 0745 Patient A/O x4, amicable, up to chair for breakfast. Noted patient's back dsg is approx. half covered in shadow drainage, noted H&H, patient reports feeling mildly dizzy, patient hypotensive. PA notified. Dressing changed. Blood product ordered. Lung sounds clear, patient denies SOB or increased WOB. Room air. IV, right hand, patent and WNL. 1045: Transfusion consent signed. Patient verified. Transfusion started, explained s/s of transfusion reaction, patient tolerating.
--- NOTE | 2020-06-08 13:03 | PT-IP ANOTE ---
Per RN, pt still receiving blood and on hold for PM therapy.
--- NOTE | 2020-06-08 13:42 | CM.DPNOTE ---
DCP Cont Patient getting blood transfusion today as he has been bleeding from his spinal wound and H+H dropping. Patient doing well w/PT as of yesterday, PT held today d/t H+H/ blood transfusion. Patient sitting up in chair when this SOLAR MANAGER saw him, eager to return home w/spouse when medically cleared. Ortho PA expects no needs from DCP team; expected DC tomorrow, home w/spouse and close outpt f/u JW
--- NOTE | 2020-06-08 15:33 | OT.IP.TRT ---
Current Diagnoses Spondylolisthesis, lumbar region (06/06/20) Spinal stenosis, lumbar region with neurogenic claudication (06/06/20) Surgery Performed Operation Date: 06/06/20 07:45 Actual Procedures p L3-S1 laminectomies & anterior/posterior instrumentated fusion w/ bone graft - Freddie Farooq MD Occupational Therapy Treatment Note M2 OT-IP Current Condition Start: 06/07/20 17:58 Freq: Status: Active Protocol: Document 06/07/20 15:15 [facility] (Rec: 06/07/20 18:12 [facility] [id number]) Occupational Therapy Current Condition Current Condition Evaluation Date 06/07/20 Treatment Diagnosis S/p L3-S1 lami and ant/post. inistr fusion Diagnosis Onset Date 06/06/20 Post Operative Precautions Lumbar Precautions Log Roll,No Twisting,Limit Bending,Lifting Restriction of 10 lbs,Gait Belt above Incisional Area M3 OT- IP Subjective and Pain Start: 06/07/20 17:58 Freq: Status: Active Protocol: Document 06/08/20 15:32 [facility] (Rec: 06/08/20 15:32 [facility] [id number]) OT- Subjective Occupational Therapy Visit Type Type Patient Unavailable Notes Pt planned for 2 units of blood today d/t low H&H. Pt still receiving blood at end of day. Will hold and continue to follow.
[2020-06-08 18:30] LABS: Hematocrit 30.7 % (41-53); Hemoglobin 10.4 g/dL (13.5-17.5)
[2020-06-08] MEDS: ATORVASTATIN 20 MG TABLET PO (21:02)
[2020-06-08] MEDS: GABAPENTIN 300 MG CAPSULE PO (21:02)
[2020-06-08] MEDS: SENNOSIDES 8.6 MG TABLET 17.2 MG PO (21:02)
[2020-06-09 05:40] VITALS: BP 144/74; PULSE 62; RESP 16; TEMP 36.4; O2SAT 99
--- NOTE | 2020-06-09 07:24 | PM.PNPO.1 ---
Subjective Subjective Date Patient Seen: 06/09/20 Time Patient Seen: 07:24 Interval history: He's doing well. No lightheadedness or SOB or CP. Back pain about 1/10. Legs are fine. Exam Vital Signs (past 8 hours): - 06/08/20 23:54 06/09/20 05:40 Temperature 97.0 F L 97.6 F Pulse Rate 69 62 Respiratory Rate 18 16 Blood Pressure 128/74 144/74 H Pulse Oximetry 97 99 Oxygen Delivery Method Room Air Oxygen Flow Rate 0 Const Orientation: alert and oriented x3 Back/Spine/Pelvis Other: CDI. 5/5 motor both lower extremities. Objective Labs Result Diagrams: 06/08/20 18:20 06/07/20 05:50 Labs: Laboratory Results - last 24 hr 06/08/20 06/08/20 09:15 18:20 Hgb 10.4 L Hct 30.7 L Blood Type B Positive Antibody Screen Negative Crossmatch See Detail Assessment & Plan Post-op Postoperative Procedures: Procedures Operation Date: 06/06/20 07:45 Actual Procedures Side Surgeon p L3-S1 laminectomies & anterior/posterior instrumentated fusion w/ bone graft Freddie Farooq MD Now status post 2 units packed red blood cell transfusion for acute blood loss anemia. His H&H is stable today. Plan to get up and mobilize with physical therapy and discharged home after this.
--- NOTE | 2020-06-09 07:27 | PM.DS.1 ---
History of Present Illness History of Present Illness Date Patient Seen: 06/09/20 Time Patient Seen: 07:27 Chief complaint: XLIF *IP* Narrative: 85-year-old male with spinal stenosis. He has some back pain primarily pain and weakness into the legs. He has been through physical therapy with no relief. He actually wound up falling and breaking his hip earlier in the year from the weakness in his legs. Discharge Providers Provider Date of admission: 06/06/20 06:12 Discharge Date: 06/09/20 Primary care physician: Stanley Marsh MD Consults: 06/06/20 15:25 Consult to Occupational Therapy Evaluate & Treat Comment: Physician Instructions: Evaluate and treat Consult to Physical Therapy Evaluate & Treat Comment: Physician Instructions: Evaluate and Treat Discharge provider: Freddie Farooq MD Summary Hospital Course Discharge Diagnosis: Lumbar stenosis with radiculopathy Acute blood loss anemia Hospital Course: Was brought to the operating room on 06/06/2020 where he underwent a L3 through S1 anterior/posterior instrumented fusion with laminectomy. Postoperatively he did very well with pain control. He mobilized well with physical therapy the 1st day. The 2nd day he was feeling slightly woozy and was found to have an H&H of 7/22. With his cardiac history and has symptoms, he was transfused 2 units of packed red blood cells for this. The next day he had no more dizziness or wheezing this. His H&H was stable at 10 and 30. He was mobilized with physical therapy and set up for discharge home. Status at Discharge Cognitive/behavioral status at discharge: oriented Functional status at discharge: uses cane/walker Overall status at discharge: patient is progressing back to baseline Exam Vital Signs (past 8 hours): - 06/08/20 23:54 06/09/20 05:40 Temperature 97.0 F L 97.6 F Pulse Rate 69 62 Respiratory Rate 18 16 Blood Pressure 128/74 144/74 H Pulse Oximetry 97 99 Oxygen Delivery Method Room Air Oxygen Flow Rate 0 Const Orientation: alert and oriented x3 Back/Spine/Pelvis Other: CDI. 5/5 motor both lower extremities. Objective Labs Result Diagrams: 06/08/20 18:20 06/07/20 05:50 Labs: Laboratory Results - last 24 hr 06/08/20 06/08/20 09:15 18:20 Hgb 10.4 L Hct 30.7 L Blood Type B Positive Antibody Screen Negative Crossmatch See Detail Discharge Assessment & Plan Assessment and Plan Assessment: Lumbar stenosis now status post L3 through S1 laminectomy and fusion Acute blood loss anemia, transfused with 2 units packed red blood cells. Plan of Treatment: Discharge home Discharge Plan Discharge Plan Patient Disposition: Home Discharge comment: Follow-up 1.5 weeks May restart Eliquis on Wednesday Discharge orders & Medications Prescriptions: New celecoxib [Celebrex] 200 mg Capsule 200 mg PO BID PRN (Reason: pain) Qty: 60 RF: 0 docusate sodium [DOK] 100 mg Capsule 100 mg PO BID PRN (Reason: constipation) Qty: 30 RF: 0 hydrocodone-acetaminophen 5-325 mg Tablet 2 tab PO Q4HR PRN (Reason: Pain, Severe (7-10)) Qty: 30 RF: 0 hydroxyzine pamoate 25 mg Capsule 25 mg PO Q4HR PRN (Reason: spasms) Qty: 20 RF: 0 Continued cyanocobalamin (vitamin B-12) [Vitamin B-12] 1,000 mcg Tablet 1,000 mcg PO DAILY Qty: 0 RF: 0 cholecalciferol (vitamin D3) [Vitamin D3] 1,000 UNIT tablet 1,000 unit PO Q DAY Qty: 0 RF: 0 atorvastatin [Lipitor] 20 MG tablet 20 mg PO HS Qty: 90 RF: 1 amlodipine [Norvasc] 5 MG tablet 5 mg PO QDAY Qty: 90 RF: 1 allopurinol 300 MG tablet 300 mg PO QDAY Qty: 90 RF: 1 metoprolol succinate [Toprol XL] 25 MG tablet extended release 24 hr 25 mg PO QDAY Qty: 90 RF: 1 lisinopril-hydrochlorothiazide 20-12.5 mg Tablet 1 tab PO DAILY RF: 0 Durezol 0.05 % Drops 1 drp EYE-RIGHT DAILY RF: 0 Eliquis 2.5 mg Tablet 2.5 mg PO BID RF: 0 timolol 0.5 % Drops 1 drp EYE-RIGHT BID RF: 0 Follow up/Referrals: Stanley Marsh MD [Primary Care Provider] - Discharge Health Status Multidrug resistant organism: No MDRO Diet/Activity/Treatments Diet: Diet as Tolerated Activity: Limited bending, twisting, 10 lb maximum lifting. Skin/Wound/Dressing Care Report to your healthcare provider any signs of infection, such as:: chills, fever, night sweats, increased pain, unusual drainage and unusual redness Dressing: May change dressing and shower on Wednesday. Replace with clean dry dressing when done. Visit Report/Discharge Packet Instructions: DI for Laminectomy, DI for Prescription Opioid Use, DI for Lateral Lumbar Interbody Fusion Stand Alone Forms: Surgery Discharge Discharge Data Primary Care Provider: Stanley Marsh
[2020-06-09 08:31] VITALS: BP 139/71; PULSE 58; RESP 15; TEMP 36; O2SAT 100
--- NOTE | 2020-06-09 10:27 | PT.IPTN ---
Current Diagnoses Spondylolisthesis, lumbar region (06/06/20) Spinal stenosis, lumbar region with neurogenic claudication (06/06/20) Surgery Performed Operation Date: 06/06/20 07:45 Actual Procedures p L3-S1 laminectomies & anterior/posterior instrumentated fusion w/ bone graft - Freddie Farooq MD Physical Therapy Treatment Note M2 PT-IP Current Condition Start: 06/07/20 13:24 Freq: NEEDED Status: Active Protocol: Document 06/07/20 11:00 AB (Rec: 06/07/20 13:37 AB [id number]) Physical Therapy Current Condition Current Condition Evaluation Date 06/07/20 Treatment Diagnosis s/p L3-4, L4-5 anterior fusion ; L5S1 TLIF; difficulty in walking Onset Date 06/06/20 Precautions Lumbar Precautions Log Roll,No Twisting,Limit Bending,Lifting Restriction of 10 lbs,Gait Belt above Incisional Area M3 PT-IP Subjective Start: 06/07/20 13:24 Freq: NEEDED Status: Active Protocol: Document 06/09/20 10:15 AW (Rec: 06/09/20 10:27 AW [id number]) Subjective Physical Therapy Visit Type Type Treatment Note Visit Start Time 09:54 Visit Stop Time 10:14 Total Visit Minutes 20 Notes H/H up to 10.4/30.7 following transfusion yesterday Physical Therapy Visit Comments Patient Comments I feel less week and woozy Therapy Pain Assessment Pain When Pain Assessed During Mobility Pain Present Pain Present Pain Reported Location Lower Back Intensity 7 Scale Used 1/10 at rest increasing to 7/ 10 during mobility Pain Management Techniques Distraction,Re-positioning, Timing of Activity with Medications M4 PT-IP Mobility and Gait Start: 06/07/20 13:24 Freq: NEEDED Status: Active Protocol: Document 06/09/20 10:15 AW (Rec: 06/09/20 10:27 AW [id number]) PT-Bed Mobility Assessment Rolling Type of Rolling Log Rolling,Roll to Left Level of Assist Standby Assistance Supine to Sit Supine to Sit Standby Assistance Sit to Supine Sit to Supine Standby Assistance Scooting Scooting to Edge of Bed Standby Assistance Scooting Up and Down in Bed Standby Assistance PT-Transfer Assessment Sit to and From Stand Sit to and from Stand Standby Assistance,Use of Upper Extremities Equipment Transfer Assistive Device Gait Belt,Front Wheeled Walker Orthotic/Prosthetic Devices or Brace: No Transfers Transfer Destination Bed,Chair Transfer Technique pt ambulated with FWW Transfer Ability Level of Assist Standby Assistance,Use of Upper Extremities Comments Mobility Comments Pt was sitting up in the chair upon PT arrival. Sitting BP 137/75 HR 74. He was able to recall 3/3 back precautions. He stood using FWW SBA and immediately noted mild lightheadedness. BP after two minutes standing was 140/78 HR 71. Pt ambulated around the unit for a total of 250 feet. Pace and candie were good. Pt remarked he was moving slightly more slowly than baseline. He completed stair training and ambulated back to the room with FWW SBA. He practiced sit <> supine 1 reps SBA and then ambulated back to the chair. He required cues to use hands on the chair arms to slow his descent but was otherwise SBA. BP after activity was 151/98 HR 71. Pt was positioned with call light and all needs within reach as his arrived to visit. Gait Assessment Gait Gait Assistance Required: Standby Assistance Distance (Feet) 250 Able to Maintain Weight Bearing Status Yes During Gait Assistive Devices Assistive Device Gait Belt,Front Wheeled Walker Orthotic/Prosthetic Devices or Brace: No Gait Deviations General Gait Pattern Antalgic,Decreased Stride Length,Decreased Feet Clearance,Flexed Trunk Factors Limiting Gait Function Factors Limiting Gait Function Decreased Activity Tolerance, Decreased Strength,Limited Range of Motion,Pain,Poor Balance Comments Gait Comments Pt completed all ambulation with FWW SBA, increasing his gait distance by a factor of 5 . Stair Climbing Assessment Evaluation Level of Assist On Stairs Standby Assistance Devices Stair Climbing Assistive Devices Left Railing Technique/Endurance Stair Climbing Direction Ascend and Descend Stair Climbing Technique Step Over Step Number of Steps Climbed 3 Stair Climbing Set # Repetitions (reps) 1 Comments Stair Climbing Comments Pt and his were advised to have person assisting located downhill from pt at all times. Pt cleared his feet safely and without cues. PT-Balance Assessment Sitting Balance and Reactions Static Sitting Balance Ability Normal Dynamic Sitting Balance Ability Normal Standing Balance and Reactions Static Standing Balance Ability Good Dynamic Standing Balance Ability Good M5 PT-IP Objective Assessments Start: 06/07/20 13:24 Freq: NEEDED Status: Active Protocol: Document 06/07/20 11:00 AB (Rec: 06/07/20 13:37 AB [id number]) Orientation Orientation/Cognition Level of Alertness Alert Orientation Name,Age,Birthday,Month,Date, Year,Day of Week,Place, Situation Gross Range of Motion Lower Extremity ROM Assessment Within Functional Limits Strength Lower Extremity Strength Assessment Within Functional Limits Coordination Assessment Gross Coordination Gross Coordination WNL Sensation Assessment Sensation Gross Sensation WNL Muscle Tone Muscle Tone WNL Yes M6 PT-IP Treatment Start: 06/07/20 13:24 Freq: NEEDED Status: Active Protocol: Document 06/09/20 10:15 AW (Rec: 06/09/20 10:27 AW [id number]) Physical Therapy Treatment Education Education Provided Precautions,Safety M7 PT-IP Assessment and Plan Start: 06/07/20 13:24 Freq: NEEDED Status: Active Protocol: Document 06/09/20 10:15 AW (Rec: 06/09/20 10:27 AW [id number]) PT Summary Assessment and Plan Potential Rehabilitation Potential Good Status of Condition at Evaluation Stable Summary Impairments Pain,ROM,Strength,Balance,Bed Mobility,Transfers,Gait, Activity Tolerance Progress Towards Goals Progressing Toward Goals,Safe For Discharge Assessment Summary Pt required SBA for all mobility and increased his gait distance by a factor of 5 . Pt and his are feeling good about discharge plan. Pt is safe to d/c to home with spouse assisting. Goals Bed Mobility Goal Independent Transfer Goal Independent,Front Wheeled Walker Gait Goal Independent,Front Wheel Walker Gait Distance 200 Other Goals up/down 2 steps L rail SBA Days to Meet Goals 5 Frequency of Treatment Frequency Of Treatment Discharge Treatment Plan Physical Therapy Treatment Plan Bed Mobility Training,Transfer Training,Gait Training, Therapeutic Exercise,Balance Retraining,Post Op Education, Discharge Planning,Hot or Cold Pack,Neuromuscular Re-ed, Coordination Retraining,Manual Therapy Recommendations To Nursing Amount of Assist Needed Standby Assistance Discharge Recommendations PT Discharge Recommendations Home with Assistance Transportation Needs at Discharge Private Vehicle
[2020-06-09] MEDS: allopurinoL 300 MG TABLET 150 MG PO (10:47)
[2020-06-09] MEDS: HYDROCODONE/ACET 5/325 TABLET 1 TAB PO (10:47)
[2020-06-09] MEDS: hydroCHLOROthiazide 12.5 MG CAPSULE PO (10:48)
[2020-06-09] MEDS: DOCUSATE 100 MG CAPSULE PO (10:48)
[2020-06-09] MEDS: CYANOCOBALAMIN (VITAMIN B-12) 500 MCG TABLET 1000 MCG PO (10:48)
[2020-06-09] MEDS: CELECOXIB 200 MG CAPSULE PO (10:48)
[2020-06-09] MEDS: lisinopriL 20 MG TABLET PO (10:48)
[2020-06-09] MEDS: AMLODIPINE 5 MG TABLET PO (10:48)
[2020-06-09] MEDS: CHOLECALCIFEROL (VITAMIN D3) 1,000 UNIT TABLET 1000 UNIT PO (10:48)
[2020-06-09] MEDS: METOPROLOL ER 25 MG TABLET PO (10:48)
[2020-06-09] MEDS: TIMOLOL 0.5% OPHTH 1 DROPS EYE-BOTH (10:48)
--- NOTE | 2020-06-09 11:29 | PC.NURSE ---
Addendum entered by Asmita Montague R.N. 06/09/20 13:20: Patient education given, demonstrated dsg change for and patient. Both back and hip site are free of redness, swelling and active bleeding. Covered sites with xeroform, gauze and secured with covrsite. Explained s/s of infection and when to call MD. Patient request pain medication prior to transportation, see MAR. IV removed. Patient tolerated. Patient discharged via wheelchair, present. Original Note: Patient A/Ox4, bedside. Anderson removed this AM, patient tolerated well. Awaiting post anderson void. Patient up with SBA, FWW. Denies pain while at rest, 6/10 while moving. PRN pain medication given. Lung sounds clear, patient denies SOB. Patient denies dizziness with ambulation. Dsg is CDI. No redness or s/s of infection. Patient is afebrile.
[2020-06-09 12:39] VITALS: BP 134/75; PULSE 67; RESP 15; TEMP 36.4; O2SAT 100
[2020-06-09] MEDS: HYDROCODONE/ACET 5/325 TABLET 2 TAB PO (13:06)
[2020-06-09 13:28] VITALS: BP 134/75; PULSE 65
== END 2020-06-09 13:15 | disposition home or self-care (01) | DRG 454 ==
PROVIDERS: Admitting Provider Orthopaedic Surgery; Family Provider Family Medicine; PCP Family Medicine; Referring Provider Orthopaedic Surgery; Visit Provider Orthopaedic Surgery
PROC: 0SG00A0 Fusion of Lumbar Vertebral Joint with Interbody Fusion Device, Anterior Approach, Anterior Column, Open Approach (ICD-10-PCS; CPT 22558; principal; 2020-06-06 07:45)
DX: M48.062 Spinal stenosis, lumbar region with neurogenic claudication (principal); D62 Acute posthemorrhagic anemia; I95.9 Hypotension, unspecified; N18.3 Chronic kidney disease, stage 3 (moderate); M43.16 Spondylolisthesis, lumbar region; I12.9 Hypertensive chronic kidney disease with stage 1 through stage 4 chronic kidney disease, or unspecified chronic kidney disease; I25.10 Atherosclerotic heart disease of native coronary artery without angina pectoris; E78.5 Hyperlipidemia, unspecified; D64.9 Anemia, unspecified; Z87.891 Personal history of nicotine dependence
CPT/HCPCS: 36415; 36430; 72100; 76000; 80048; 85014; 85018; 86850; 86900; 86901; 94762; 97116; 97161; 97165; 97530; 97535; C1776; P9016; J0330; J0595; J0690; J1100; J2274; J2405; J2704; J3010

== ENCOUNTER → 2022-11-12 11:34 | Outpatient (CLI) | payer MEDICARE, SELFPAY ==
[2020-06-06 15:00] VITALS: BMI 24.6
[2022-11-12 14:00] LABS: Appearance Urine UA CLEAR; Bilirubin Urine UA NEGATIVE (NEGATIVE); Color Urine UA YELLOW; Glucose Urine UA TRACE g/dL (Negative); Ketones Urine UA NEGATIVE (NEGATIVE); Leukocyte Esterase Urine UA NEGATIVE (NEGATIVE); Nitrite Urine UA NEGATIVE (Negative); Occult Blood Urine UA TRACE-LYSED (Negative); Protein Urine UA 2+ (Negative); Urobilinogen Urine UA 0.2 E.U./dL (0.2)
[2022-11-12 14:09] LABS: Bacteria Urine None Seen; Culture Indicated Urine Cult Not Indicated; RBC Urine None Seen (0-5/HPF); Urine Comments Microscopic Normal; WBC Urine None Seen (0-5/HPF)
[2022-11-12 17:43] LABS: BUN Creatinine Ratio 20.1 (6-22); Blood Urea Nitrogen 89 mg/dL (9-20); Calcium 9.2 mg/dL (8.4-10.2); Carbon Dioxide 16 mmol/L (22-32); Chloride 108 mmol/L (98-107); Estimated Glomerular Filt Rate 12 mL/min (>60); Glucose 105 mg/dL (80-110); HEMOLYSIS < 15 (0-50); Phosphorous 5.9 mg/dL (2.3-3.7); Potassium 4.9 mmol/L (3.4-5.1); Sodium 137 mmol/L (137-145)
[2022-11-13 17:18] LABS: Albumin 4.1 g/dL (3.5-5.0)
== END ==
PROVIDERS: Family Provider Family Medicine; PCP Family Medicine; Referring Provider Internal Medicine Nephrology; Visit Provider Internal Medicine Nephrology
DX: N18.4 Chronic kidney disease, stage 4 (severe) (principal)
CPT/HCPCS: 36415; 80069; 81001

== ENCOUNTER → 2022-11-24 12:01 | Outpatient (CLI) | payer MEDICARE, SELFPAY ==
[2020-06-06 15:00] VITALS: BMI 24.6
--- NOTE | 2022-11-24 | DI.US.S_ITS ---
PROCEDURE: US RENAL COMPLETE INDICATIONS: Chronic kidney disease, stage 4 (severe) TECHNIQUE: Real-time scanning was performed of the kidneys and bladder, with image documentation. COMPARISON: [facility], , US RENAL COMPLETE, 06/20/2019, 12:24. FINDINGS: Kidneys: Kidneys are normal in size. Right kidney measures 9.8 cm long; left kidney measures 9.7 cm long. Right renal cortical thickness is 1.2 cm; left renal cortical thickness is 1.1 cm. Renal cortices are diffusely increased in echogenicity. Simple cysts are seen in each kidney, measuring 5.3 x 6.5 x 6.8 cm on the right and 0.9 cm on the left. No hydronephrosis or nephrolithiasis. No suspicious solid mass lesions. Bladder: Pre-void bladder volume is 290 mL. Post-void residual is 0 mL. Pre-void images demonstrate no intraluminal masses or stones. On pre-void images, unilateral left ureteral jets are noted with color Doppler interrogation. (Of note, ureteral jets may not be detectable in up to 25% of cases due to insufficient differences in specific gravity between ureteral and bladder urine). Miscellaneous: No free pelvic fluid. IMPRESSION: Increased renal echogenicity can be seen in the setting of medical renal disease. No hydronephrosis. Bilateral renal cysts. Approved by: Garth Ross M.D. on 11/24/2022 at 20:29
== END ==
PROVIDERS: Family Provider Family Medicine; PCP Family Medicine; Referring Provider Internal Medicine Nephrology; Visit Provider Internal Medicine Nephrology
DX: N18.4 Chronic kidney disease, stage 4 (severe) (principal); N28.1 Cyst of kidney, acquired
CPT/HCPCS: 76770

== ENCOUNTER → 2022-12-31 13:10 | Outpatient (CLI) | payer MEDICARE, SELFPAY ==
[2020-06-06 15:00] VITALS: BMI 24.6
[2022-12-31 13:44] LABS: Add Manual Diff / Slide Review NO; Basophils Absolute Auto 0 /uL (0-100); Basophils Percent Auto 0.7 % (0-2); Eosinophils Absolute Auto 400 /uL (0-450); Eosinophils Percent Auto 6.5 % (2-4); Hematocrit 28.7 % (41-53); Hemoglobin 9.5 g/dL (13.5-17.5); Lymphocytes Absolute Auto 1900 /uL (1100-4500); Lymphocytes Percent Auto 31.7 % (25-40); Mean Corpuscular HGB Conc 33.1 % (30-36); Mean Corpuscular Hemoglobin 35.3 PG (26-34); Mean Corpuscular Volume 106.8 fL (80-100); Monocytes Absolute Auto 700 /uL (0-900); Monocytes Percent Auto 11.2 % (3-14); Neutrophils Absolute Auto 3000 /uL (1500-7000); Neutrophils Percent Auto 49.9 % (50-75); Platelet Count 218 X10^3/uL (150-400); Red Blood Cell Count 2.69 X10^6/uL (4.5-5.9); Red Cell Distribution Width 14.5 % (11.6-14.8); White Blood Cell Count 6.1 X10^3/uL (4.5-11.0)
[2022-12-31 14:15] LABS: Albumin 3.9 g/dL (3.5-5.0); BUN Creatinine Ratio 17.9 (6-22); Blood Urea Nitrogen 68 mg/dL (9-20); Calcium 8.8 mg/dL (8.4-10.2); Carbon Dioxide 21 mmol/L (22-32); Chloride 106 mmol/L (98-107); Estimated Glomerular Filt Rate 15 mL/min (>60); Glucose 120 mg/dL (80-110); HEMOLYSIS < 15 (0-50); Phosphorous 5.5 mg/dL (2.3-3.7); Potassium 4.7 mmol/L (3.4-5.1); Sodium 139 mmol/L (137-145)
[2023-01-02 06:36] LABS: Parathyroid Hormone Int 310 pg/mL (15-65)
== END ==
PROVIDERS: Family Provider Family Medicine; PCP Family Medicine; Referring Provider Internal Medicine Nephrology; Visit Provider Internal Medicine Nephrology
DX: N18.5 Chronic kidney disease, stage 5 (principal)
CPT/HCPCS: 36415; 80069; 83970; 85025

== ENCOUNTER → 2023-02-11 07:50 | Outpatient (CLI) | payer MEDICARE, SELFPAY ==
[2020-06-06 15:00] VITALS: BMI 24.6
[2023-02-11 08:54] LABS: Add Manual Diff / Slide Review NO; Basophils Absolute Auto 0 /uL (0-100); Basophils Percent Auto 0.5 % (0-2); Eosinophils Absolute Auto 600 /uL (0-450); Eosinophils Percent Auto 9.9 % (2-4); Hematocrit 29.1 % (41-53); Lymphocytes Absolute Auto 1800 /uL (1100-4500); Lymphocytes Percent Auto 28.8 % (25-40); Mean Corpuscular HGB Conc 34.4 % (30-36); Mean Corpuscular Hemoglobin 36.6 PG (26-34); Mean Corpuscular Volume 106.4 fL (80-100); Monocytes Absolute Auto 600 /uL (0-900); Monocytes Percent Auto 10.3 % (3-14); Neutrophils Absolute Auto 3100 /uL (1500-7000); Neutrophils Percent Auto 50.5 % (50-75); Platelet Count 233 X10^3/uL (150-400); Red Blood Cell Count 2.74 X10^6/uL (4.5-5.9); Red Cell Distribution Width 14.5 % (11.6-14.8); White Blood Cell Count 6.1 X10^3/uL (4.5-11.0)
[2023-02-11 09:13] LABS: Alanine Aminotransferase 18 IU/L (<50); Albumin 4.1 g/dL (3.5-5.0); Albumin Globulin Ratio 1.6 (1.0-2.8); Alkaline Phosphatase 60 U/L (38-126); Aspartate Aminotransferase 22 IU/L (17-59); BUN Creatinine Ratio 16.6 (6-22); Bilirubin Total 0.5 mg/dL (0.2-1.3); Bilirubin Unconjugated 0.1 mg/dL (0.0-1.1); Blood Urea Nitrogen 63 mg/dL (9-20); Calcium 9.2 mg/dL (8.4-10.2); Carbon Dioxide 20 mmol/L (22-32); Chloride 108 mmol/L (98-107); Cholesterol 149 mg/dL (140-199); Estimated Glomerular Filt Rate 15 mL/min (>60); Globulin 2.6 g/dL (1.7-4.1); Glucose 88 mg/dL (80-110); HDL Cholesterol 88 mg/dL (40-60); HEMOLYSIS < 15 (0-50); LDL Cholesterol Calculated 45 mg/dL (<100); Magnesium 1.8 mg/dL (1.6-2.3); Potassium 4.6 mmol/L (3.4-5.1); Sodium 140 mmol/L (137-145); Total Protein 6.7 g/dL (6.3-8.2); Triglycerides 82 mg/dL (35-150)
[2023-02-11 09:19] LABS: Free T4, Direct Thyroxine 1.08 ng/dL (0.78-2.19)
[2023-02-11 09:33] LABS: Thyroid Stimulating Hormone 2.34 uIU/mL (0.47-4.68)
[2023-02-12 06:10] LABS: Labcorp Hemoglobin (Hb) A1c 5.4 % (4.8-5.6)
== END ==
PROVIDERS: Family Provider Family Medicine; PCP Family Medicine; Referring Provider Internal Medicine Cardiovascular Disease; Visit Provider Internal Medicine Cardiovascular Disease
DX: E78.5 Hyperlipidemia, unspecified (principal); I10 Essential (primary) hypertension; R73.9 Hyperglycemia, unspecified; N18.5 Chronic kidney disease, stage 5
CPT/HCPCS: 36415; 80061; 80069; 80076; 83036; 83735; 84439; 84443; 85025

== ENCOUNTER → 2023-03-26 11:18 | Outpatient (CLI) | payer MEDICARE, SELFPAY ==
[2020-06-06 15:00] VITALS: BMI 24.6
[2023-03-26 11:48] LABS: Add Manual Diff / Slide Review NO; Basophils Absolute Auto 0 /uL (0-100); Basophils Percent Auto 0.4 % (0-2); Eosinophils Absolute Auto 800 /uL (0-450); Eosinophils Percent Auto 12.7 % (2-4); Hematocrit 29.8 % (41-53); Hemoglobin 10.3 g/dL (13.5-17.5); Lymphocytes Absolute Auto 1800 /uL (1100-4500); Mean Corpuscular HGB Conc 34.4 % (30-36); Mean Corpuscular Hemoglobin 36.5 PG (26-34); Monocytes Absolute Auto 500 /uL (0-900); Monocytes Percent Auto 8.3 % (3-14); Neutrophils Absolute Auto 3300 /uL (1500-7000); Neutrophils Percent Auto 50.6 % (50-75); Platelet Count 218 X10^3/uL (150-400); Red Blood Cell Count 2.81 X10^6/uL (4.5-5.9); Red Cell Distribution Width 14.7 % (11.6-14.8); White Blood Cell Count 6.5 X10^3/uL (4.5-11.0)
[2023-03-26 12:17] LABS: BUN Creatinine Ratio 16.1 (6-22); Blood Urea Nitrogen 70 mg/dL (9-20); Carbon Dioxide 21 mmol/L (22-32); Chloride 105 mmol/L (98-107); Estimated Glomerular Filt Rate 13 mL/min (>60); Glucose 108 mg/dL (80-110); HEMOLYSIS < 15 (0-50); Phosphorous 4.6 mg/dL (2.3-3.7); Potassium 4.5 mmol/L (3.4-5.1); Sodium 137 mmol/L (137-145)
[2023-03-26 12:35] LABS: Vitamin D 25 Hydroxy (D3) 43.3 ng/mL (30.0-100.0)
[2023-03-26 12:40] LABS: Appearance Urine UA CLEAR; Bilirubin Urine UA NEGATIVE (NEGATIVE); Color Urine UA YELLOW; Glucose Urine UA NEGATIVE (Negative); Ketones Urine UA NEGATIVE (NEGATIVE); Leukocyte Esterase Urine UA NEGATIVE (NEGATIVE); Nitrite Urine UA NEGATIVE (Negative); Occult Blood Urine UA NEGATIVE (Negative); Protein Urine UA 2+ (Negative); Specific Gravity Urine UA 1.015 (1.000-1.035); Urobilinogen Urine UA 0.2 E.U./dL (0.2)
[2023-03-26 12:52] LABS: Bacteria Urine None Seen; Culture Indicated Urine Cult Not Indicated; RBC Urine None Seen (0-5/HPF); WBC Urine None Seen (0-5/HPF)
[2023-03-26 15:52] LABS: Microalbumi Creatinin Ratio Ur 5313.7 ug/mg CR (<30)
== END ==
PROVIDERS: Family Provider Family Medicine; PCP Family Medicine; Referring Provider Internal Medicine Nephrology; Visit Provider Internal Medicine Nephrology
DX: N18.5 Chronic kidney disease, stage 5 (principal)
CPT/HCPCS: 36415; 80069; 81001; 82043; 82306; 82570; 85025

== ENCOUNTER → 2023-10-06 13:11 | Outpatient (CLI) | payer MEDICARE, SELFPAY ==
[2020-06-06 15:00] VITALS: BMI 24.6
--- NOTE | 2023-10-06 13:12 | DI.MRI.S_ITS ---
PROCEDURE: MR LUMBAR SPINE WO CON INDICATIONS: history of lumbar fusion TECHNIQUE: Noncontrast sagittal T1 spin echo and T2 fast echo, sagittal STIR, and T2 fast spin echo through the lumbar spine. In cases with scoliosis, additional coronal T2 fast spin echo may be performed. COMPARISON: None. FINDINGS: Image quality: Excellent. Alignment and Curvature: Straightening of the normal lumbar lordosis. Mild retrolisthesis of L5-S1. Mild anterolisthesis of L3 on L4. Bone Marrow: Status post L3 through S1 posterior spinal fixation and discectomy. Multilevel Modic type 1 and 2 degenerative endplate changes. Schmorl's node of the inferior endplate of L2 with associated edema, consistent with acute Schmorl's node. Marrow is otherwise of normal overall signal. No acute vertebral body compression fractures. Spinal Cord: Conus medullaris terminates at the L1 level. Visualized cord demonstrates normal signal and size. Paraspinous Soft Tissues: No paravertebral masses. Kidneys are small in appearance with several simple cysts. T12-L1: Normal appearance. L1-L2: Disc desiccation. Minimal disc bulge. No central canal stenosis. Mild bilateral neural foraminal stenosis. L2-L3: Disc desiccation and height loss. Posterior disc bulge. Facet arthropathy and thickening of ligamentum flavum. Epidural lipomatosis. Moderate central canal stenosis. Mild bilateral neural foraminal stenosis. L3-L4: Postoperative changes. No central canal stenosis. Facet arthropathy. Mild bilateral neural foraminal stenosis. L4-L5: Postoperative changes. No central canal stenosis. Facet arthropathy. No significant neural foraminal stenosis. L5-S1: Small posterior disc bulge with annular tear. Facet arthropathy. No central canal stenosis. Severe right and moderate left neural foraminal stenosis. IMPRESSION: 1. Multilevel degenerative changes of the lumbar spine status post L3 through S1 posterior spinal fixation. 2. Moderate central canal stenosis at L2-L3. Otherwise, the central canal is patent. 3. Severe right and moderate left neural foraminal stenosis at L5-S1. Mild central canal stenosis at other levels as above. Dictated by: Cliff Palacios M.D. on 10/06/2023 at 15:50 Approved by: Cliff Palacios M.D. on 10/06/2023 at 15:53
== END ==
PROVIDERS: Family Provider Family Medicine; Referring Provider Orthopaedic Surgery; Visit Provider Orthopaedic Surgery
DX: M47.817 Spondylosis without myelopathy or radiculopathy, lumbosacral region (principal); M47.816 Spondylosis without myelopathy or radiculopathy, lumbar region; M48.061 Spinal stenosis, lumbar region without neurogenic claudication; M48.07 Spinal stenosis, lumbosacral region; M54.50 Low back pain, unspecified; Z98.1 Arthrodesis status
CPT/HCPCS: 72148

== ENCOUNTER → 2024-11-16 13:05 | Outpatient (CLI) | payer MEDICARE, SELFPAY ==
[2020-06-06 15:00] VITALS: BMI 24.6
[2024-11-16 13:44] VITALS: BP 133/72; PULSE 72; RESP 16; TEMP 36.6; O2SAT 97
[2024-11-16 13:46] LABS: Hematocrit 25.1 % (41-53); Hemoglobin 8.6 g/dL (13.5-17.5)
[2024-11-16] MEDS: EPOETIN ALFA-EPBX 20,000 UNIT/ML VIAL 20000 UNIT SUBCUT (13:58)
[2024-11-16 14:04] LABS: HEMOLYSIS < 15 (0-50); Iron 91 ug/dL (49-181)
[2024-11-16 14:15] LABS: Percent Iron Saturation 48 % (20-50); Total Iron Binding Capacity 190 ug/dL (261-462); Transferrin 180 mg/dL (206-381)
[2024-11-16 14:42] LABS: Ferritin 105 ng/mL (18-464)
== END ==
PROVIDERS: Family Provider Family Medicine; Referring Provider Internal Medicine Nephrology; Visit Provider Internal Medicine Nephrology
DX: D63.1 Anemia in chronic kidney disease (principal); N18.5 Chronic kidney disease, stage 5
CPT/HCPCS: 82728; 83540; 83550; 85014; 85018; 96372; Q5106

== ENCOUNTER → 2024-12-14 13:24 | Outpatient (CLI) | payer MEDICARE, SELFPAY ==
[2020-06-06 15:00] VITALS: BMI 24.6
[2024-12-14 13:42] VITALS: BP 139/67; PULSE 68; RESP 18; TEMP 36.6; O2SAT 98
[2024-12-14] MEDS: EPOETIN ALFA-EPBX 20,000 UNIT/ML VIAL 20000 UNIT SUBCUT (14:01)
== END ==
LOC: ONC 13:24
PROVIDERS: Family Provider Family Medicine; Referring Provider Internal Medicine Nephrology; Visit Provider Internal Medicine Nephrology
DX: N18.5 Chronic kidney disease, stage 5 (principal); D63.1 Anemia in chronic kidney disease
CPT/HCPCS: 85014; 85018; 96372; Q5106

== ENCOUNTER → 2025-01-11 13:03 | Outpatient (CLI) | payer MEDICARE, SELFPAY ==
[2020-06-06 15:00] VITALS: BMI 24.6
[2024-12-14 13:43] LABS: Hematocrit 27.7 % (41-53); Hemoglobin 9.4 g/dL (13.5-17.5)
[2025-01-11 13:38] LABS: Hematocrit 26.6 % (41-53); Hemoglobin 8.8 g/dL (13.5-17.5)
[2025-01-11 13:45] VITALS: BP 137/72; PULSE 66; RESP 18; TEMP 36.8; O2SAT 98
[2025-01-11] MEDS: EPOETIN ALFA-EPBX 20,000 UNIT/ML VIAL 20000 UNIT SUBCUT (13:50)
== END ==
LOC: ONC 13:03
PROVIDERS: Family Provider Family Medicine; PCP Family Medicine; Referring Provider Internal Medicine Nephrology; Visit Provider Internal Medicine Nephrology
DX: D63.1 Anemia in chronic kidney disease (principal); N18.5 Chronic kidney disease, stage 5
CPT/HCPCS: 36415; 85014; 85018; 96372; Q5106

== ENCOUNTER → 2025-02-08 13:21 | Outpatient (CLI) | payer MEDICARE, SELFPAY ==
[2020-06-06 15:00] VITALS: BMI 24.6
[2025-02-08 13:53] LABS: Hematocrit 27.1 % (41-53); Hemoglobin 9.1 g/dL (13.5-17.5)
[2025-02-08 14:01] VITALS: BP 123/62; PULSE 74; RESP 18; TEMP 36.6; O2SAT 98
[2025-02-08] MEDS: EPOETIN ALFA-EPBX 20,000 UNIT/2 ML VIAL 20000 UNIT SUBCUT (14:10)
[2025-02-08 15:05] LABS: HEMOLYSIS 22 (0-50); Total Iron Binding Capacity 217 ug/dL (261-462); Transferrin 185 mg/dL (206-381)
[2025-02-08 15:26] LABS: Ferritin 104 ng/mL (18-464)
[2025-02-08 16:24] LABS: Iron 92 ug/dL (49-181); Percent Iron Saturation 42 % (20-50)
== END ==
PROVIDERS: Family Provider Family Medicine; PCP Family Medicine; Referring Provider Internal Medicine Nephrology; Visit Provider Internal Medicine Nephrology
DX: D63.1 Anemia in chronic kidney disease (principal); N18.5 Chronic kidney disease, stage 5
CPT/HCPCS: 36415; 82728; 83540; 83550; 85014; 85018; 96372; Q5106

== ENCOUNTER → 2025-03-12 13:24 | Outpatient (CLI) | payer MEDICARE, SELFPAY ==
[2020-06-06 15:00] VITALS: BMI 24.6
[2025-03-12 14:09] VITALS: BP 135/67; PULSE 72; RESP 18; TEMP 36.6; O2SAT 97
[2025-03-12] MEDS: EPOETIN ALFA-EPBX 20,000 UNIT/ML VIAL 20000 UNIT SUBCUT (14:25)
== END ==
LOC: ONC 13:25
PROVIDERS: Family Provider Family Medicine; PCP Family Medicine; Referring Provider Internal Medicine Nephrology; Visit Provider Internal Medicine Nephrology
DX: N18.4 Chronic kidney disease, stage 4 (severe) (principal); D63.1 Anemia in chronic kidney disease
CPT/HCPCS: 85014; 85018; 96372; Q5106

== ENCOUNTER → 2025-04-09 11:57 | Outpatient (CLI) | payer MEDICARE, SELFPAY ==
[2020-06-06 15:00] VITALS: BMI 24.6
[2025-04-09 13:07] LABS: Hematocrit 26.4 % (41-53); Hemoglobin 8.8 g/dL (13.5-17.5)
[2025-04-09 13:24] LABS: HEMOLYSIS 20 (0-50); Iron 82 ug/dL (49-181)
[2025-04-09 13:37] LABS: Percent Iron Saturation 39 % (20-50); Total Iron Binding Capacity 211 ug/dL (261-462); Transferrin 176 mg/dL (206-381)
[2025-04-09 13:59] LABS: Ferritin 169 ng/mL (18-464)
== END ==
PROVIDERS: Family Provider Family Medicine; PCP Physician Assistant; Referring Provider Internal Medicine Nephrology; Visit Provider Internal Medicine Nephrology
DX: N18.4 Chronic kidney disease, stage 4 (severe) (principal); D64.9 Anemia, unspecified
CPT/HCPCS: 82728; 83540; 83550; 85014; 85018

== ENCOUNTER → 2025-04-09 13:35 | Outpatient (CLI) | payer MEDICARE, SELFPAY ==
[2020-06-06 15:00] VITALS: BMI 24.6
[2025-04-09 13:49] VITALS: BP 141/64; PULSE 71; RESP 16; TEMP 36.6; O2SAT 99
[2025-04-09] MEDS: EPOETIN ALFA-EPBX 20,000 UNIT/ML VIAL 20000 UNIT SUBCUT (13:57)
--- NOTE | 2025-04-09 15:46 | INF.NOTE ---
Patient arrived early for appt. Arrival @ 1337 He and thought appt was at 1330. Labs already drawn barge captain to infusion with results available. Verified all remaining appts scheduled for 1430 but provided patient/patients with contact 3 for Radha Koch if they need to have them changed. Depart @ 1415. Gave patient copy of upcoming appointments/schedule and lab results from today 04/09 for HGB/HCT
== END ==
LOC: ONC 04-11 16:21
PROVIDERS: Family Provider Family Medicine; PCP Physician Assistant; Referring Provider Internal Medicine Nephrology; Visit Provider Internal Medicine Nephrology
DX: N18.5 Chronic kidney disease, stage 5 (principal); D63.1 Anemia in chronic kidney disease
CPT/HCPCS: 82728; 83540; 83550; 85014; 85018; 96372; Q5106

== ENCOUNTER → 2025-04-25 11:48 | Outpatient (CLI) | payer MEDICARE, SELFPAY ==
[2020-06-06 15:00] VITALS: BMI 24.6
[2025-04-25 12:07] LABS: Hematocrit 26.5 % (41-53); Hemoglobin 8.9 g/dL (13.5-17.5)
== END ==
PROVIDERS: Family Provider Family Medicine; PCP Physician Assistant; Referring Provider Internal Medicine Nephrology; Visit Provider Internal Medicine Nephrology
DX: D64.9 Anemia, unspecified (principal)
CPT/HCPCS: 36415; 85014; 85018

== ENCOUNTER → 2025-05-07 12:28 | Outpatient (CLI) | payer MEDICARE, SELFPAY ==
[2020-06-06 15:00] VITALS: BMI 24.6
[2025-05-07 13:02] LABS: Hematocrit 28.2 % (41-53); Hemoglobin 9.4 g/dL (13.5-17.5)
== END ==
PROVIDERS: Family Provider Family Medicine; PCP Physician Assistant; Referring Provider Internal Medicine Nephrology; Visit Provider Internal Medicine Nephrology
DX: D64.9 Anemia, unspecified (principal); N18.4 Chronic kidney disease, stage 4 (severe)
CPT/HCPCS: 36415; 85014; 85018

== ENCOUNTER → 2025-05-07 13:58 | Outpatient (CLI) | payer MEDICARE, SELFPAY ==
[2020-06-06 15:00] VITALS: BMI 24.6
[2025-05-07 14:11] VITALS: BP 137/67; PULSE 74; RESP 16; TEMP 36.4; O2SAT 98
[2025-05-07] MEDS: EPOETIN ALFA-EPBX 20,000 UNIT/ML VIAL 20000 UNIT SUBCUT (14:15)
== END ==
PROVIDERS: Family Provider Family Medicine; PCP Physician Assistant; Referring Provider Internal Medicine Nephrology; Visit Provider Internal Medicine Nephrology
DX: N18.5 Chronic kidney disease, stage 5 (principal); D63.1 Anemia in chronic kidney disease
CPT/HCPCS: 36415; 85014; 85018; 96372; Q5106

== ENCOUNTER → 2025-05-22 12:03 | Outpatient (CLI) | payer MEDICARE, SELFPAY ==
[2020-06-06 15:00] VITALS: BMI 24.6
[2025-05-22 12:17] LABS: Hematocrit 28.1 % (41-53); Hemoglobin 9.6 g/dL (13.5-17.5)
[2025-05-22 12:38] LABS: HEMOLYSIS 24 (0-50); Iron 103 ug/dL (49-181)
[2025-05-22 12:49] LABS: Percent Iron Saturation 45 % (20-50); Total Iron Binding Capacity 228 ug/dL (261-462); Transferrin 198 mg/dL (206-381)
[2025-05-22 13:05] LABS: Ferritin 95 ng/mL (18-464)
== END ==
PROVIDERS: Family Provider Family Medicine; PCP Physician Assistant; Referring Provider Internal Medicine Nephrology; Visit Provider Internal Medicine Nephrology
DX: N18.4 Chronic kidney disease, stage 4 (severe) (principal); D64.9 Anemia, unspecified
CPT/HCPCS: 36415; 82728; 83540; 83550; 85014; 85018

== ENCOUNTER → 2025-05-22 13:30 | Outpatient (CLI) | payer MEDICARE, SELFPAY ==
[2020-06-06 15:00] VITALS: BMI 24.6
[2025-05-22 13:37] VITALS: BP 135/75; PULSE 74; RESP 18; TEMP 36.8; O2SAT 97
[2025-05-22] MEDS: EPOETIN ALFA-EPBX 20,000 UNIT/ML VIAL 20000 UNIT SUBCUT (13:41)
== END ==
LOC: ONC 13:30
PROVIDERS: Family Provider Family Medicine; PCP Physician Assistant; Referring Provider Internal Medicine Nephrology; Visit Provider Internal Medicine Nephrology
DX: N18.5 Chronic kidney disease, stage 5 (principal); D63.1 Anemia in chronic kidney disease
CPT/HCPCS: 36415; 82728; 83540; 83550; 85014; 85018; 96372; Q5106

== ENCOUNTER → 2025-06-04 11:04 | Outpatient (CLI) | payer MEDICARE, SELFPAY ==
[2020-06-06 15:00] VITALS: BMI 24.6
[2025-06-04 11:40] LABS: Hematocrit 28.5 % (41-53); Hemoglobin 9.6 g/dL (13.5-17.5)
== END ==
PROVIDERS: Family Provider Family Medicine; PCP Physician Assistant; Referring Provider Internal Medicine Nephrology; Visit Provider Internal Medicine Nephrology
DX: D64.9 Anemia, unspecified (principal); N18.4 Chronic kidney disease, stage 4 (severe)
CPT/HCPCS: 36415; 85014; 85018

== ENCOUNTER → 2025-06-04 14:30 | Outpatient (CLI) | payer MEDICARE, SELFPAY ==
[2020-06-06 15:00] VITALS: BMI 24.6
[2025-06-04 14:40] VITALS: BP 131/62; PULSE 70; RESP 16; TEMP 37.1; O2SAT 100
[2025-06-04] MEDS: EPOETIN ALFA-EPBX 20,000 UNIT/ML VIAL 20000 UNIT SUBCUT (14:55)
== END ==
LOC: ONC 14:54
PROVIDERS: Family Provider Family Medicine; PCP Physician Assistant; Referring Provider Internal Medicine Nephrology; Visit Provider Internal Medicine Nephrology
DX: N18.5 Chronic kidney disease, stage 5 (principal); D63.1 Anemia in chronic kidney disease; D64.9 Anemia, unspecified; N18.4 Chronic kidney disease, stage 4 (severe)
CPT/HCPCS: 36415; 85014; 85018; 96372; Q5106

== ENCOUNTER → 2025-07-03 11:50 | Outpatient (CLI) | payer MEDICARE, SELFPAY ==
[2020-06-06 15:00] VITALS: BMI 24.6
[2025-07-03 12:17] LABS: Hematocrit 31.3 % (41-53); Hemoglobin 10.5 g/dL (13.5-17.5)
[2025-07-03 12:48] LABS: HEMOLYSIS < 15 (0-50); Total Iron Binding Capacity 217 ug/dL (261-462); Transferrin 196 mg/dL (206-381)
[2025-07-03 13:00] LABS: Ferritin 85 ng/mL (18-464)
[2025-07-03 13:01] LABS: Iron 117 ug/dL (49-181); Percent Iron Saturation 54 % (20-50)
== END ==
PROVIDERS: Family Provider Family Medicine; PCP Physician Assistant; Referring Provider Internal Medicine Nephrology; Visit Provider Internal Medicine Nephrology
DX: D64.9 Anemia, unspecified (principal); N18.4 Chronic kidney disease, stage 4 (severe)
CPT/HCPCS: 36415; 82728; 83540; 83550; 85014; 85018

== ENCOUNTER → 2025-07-03 14:59 | Outpatient (CLI) | payer MEDICARE, SELFPAY ==
[2020-06-06 15:00] VITALS: BMI 24.6
[2025-07-03 15:11] VITALS: BP 145/74; PULSE 69; RESP 18; TEMP 36.6; O2SAT 100
[2025-07-03] MEDS: EPOETIN ALFA-EPBX 20,000 UNIT/ML VIAL 20000 UNIT SUBCUT (15:16)
== END ==
LOC: ONC 14:59
PROVIDERS: Family Provider Family Medicine; PCP Physician Assistant; Referring Provider Internal Medicine Nephrology; Visit Provider Internal Medicine Nephrology
DX: N18.5 Chronic kidney disease, stage 5 (principal); D63.1 Anemia in chronic kidney disease
CPT/HCPCS: 36415; 82728; 83540; 83550; 85014; 85018; 96372; Q5106

== ENCOUNTER → 2025-07-17 13:56 | Outpatient (CLI) | payer MEDICARE, SELFPAY ==
[2020-06-06 15:00] VITALS: BMI 24.6
[2025-07-17 14:21] LABS: Hematocrit 31.8 % (41-53); Hemoglobin 10.7 g/dL (13.5-17.5)
== END ==
PROVIDERS: Family Provider Family Medicine; PCP Physician Assistant; Referring Provider Internal Medicine Nephrology; Visit Provider Internal Medicine Nephrology
DX: D64.9 Anemia, unspecified (principal); N18.4 Chronic kidney disease, stage 4 (severe)
CPT/HCPCS: 85014; 85018

== ENCOUNTER → 2025-07-17 14:22 | Outpatient (CLI) | payer MEDICARE, SELFPAY ==
[2020-06-06 15:00] VITALS: BMI 24.6
[2025-07-17] MEDS: EPOETIN ALFA-EPBX 20,000 UNIT/ML VIAL 20000 UNIT SUBCUT (14:50)
[2025-07-17 14:51] VITALS: BP 138/70; PULSE 67; RESP 18; TEMP 36.6; O2SAT 98
== END ==
PROVIDERS: Family Provider Family Medicine; PCP Physician Assistant; Referring Provider Internal Medicine Nephrology; Visit Provider Internal Medicine Nephrology
DX: N18.5 Chronic kidney disease, stage 5 (principal); D63.1 Anemia in chronic kidney disease
CPT/HCPCS: 96372; Q5106

== ENCOUNTER → 2025-07-31 07:37 | Outpatient (CLI) | payer MEDICARE, SELFPAY ==
[2020-06-06 15:00] VITALS: BMI 24.6
[2025-07-31 08:00] LABS: Hematocrit 29.3 % (41-53); Hemoglobin 9.8 g/dL (13.5-17.5)
== END ==
PROVIDERS: Family Provider Family Medicine; PCP Physician Assistant; Referring Provider Internal Medicine Nephrology; Visit Provider Internal Medicine Nephrology
DX: N18.4 Chronic kidney disease, stage 4 (severe) (principal); D64.9 Anemia, unspecified
CPT/HCPCS: 36415; 85014; 85018

== ENCOUNTER → 2025-07-31 14:28 | Outpatient (CLI) | payer MEDICARE, SELFPAY ==
[2020-06-06 15:00] VITALS: BMI 24.6
[2025-07-31 14:45] VITALS: BP 136/67; PULSE 74; RESP 14; TEMP 36.9; O2SAT 99
[2025-07-31] MEDS: EPOETIN ALFA-EPBX 20,000 UNIT/ML VIAL 20000 UNIT SUBCUT (14:59)
== END ==
LOC: ONC 14:28
PROVIDERS: Family Provider Family Medicine; PCP Physician Assistant; Referring Provider Internal Medicine Nephrology; Visit Provider Internal Medicine Nephrology
DX: N18.5 Chronic kidney disease, stage 5 (principal); D63.1 Anemia in chronic kidney disease
CPT/HCPCS: 36415; 85014; 85018; 96372; Q5106

== ENCOUNTER → 2025-08-14 08:52 | Outpatient (CLI) | payer MEDICARE, SELFPAY ==
[2020-06-06 15:00] VITALS: BMI 24.6
[2025-08-14 09:48] LABS: Appearance Urine UA CLEAR; Bilirubin Urine UA NEGATIVE (NEGATIVE); Color Urine UA YELLOW; Glucose Urine UA 1+ g/dL (Negative); Ketones Urine UA NEGATIVE (NEGATIVE); Leukocyte Esterase Urine UA NEGATIVE (NEGATIVE); Nitrite Urine UA NEGATIVE (Negative); Occult Blood Urine UA TRACE-INTACT (Negative); Protein Urine UA 2+ (Negative); Specific Gravity Urine UA 1.015 (1.000-1.035); Urobilinogen Urine UA 0.2 E.U./dL (0.2); pH Urine UA 6.5 (4.5-8.0)
[2025-08-14 09:52] LABS: Hematocrit 28.8 % (41-53); Hemoglobin 9.8 g/dL (13.5-17.5); Mean Corpuscular HGB Conc 33.9 % (30-36); Mean Corpuscular Hemoglobin 37.6 PG (26-34); Mean Corpuscular Volume 110.8 fL (80-100); Platelet Count 210 X10^3/uL (150-400)
[2025-08-14 10:09] LABS: HEMOLYSIS < 15 (0-50); Iron 106 ug/dL (49-181)
[2025-08-14 10:10] LABS: Albumin 4.3 g/dL (3.5-5.0); Blood Urea Nitrogen 92 mg/dL (9-20); Calcium 10.4 mg/dL (8.4-10.2); Carbon Dioxide 21 mmol/L (22-32); Chloride 104 mmol/L (98-107); Estimated Glomerular Filt Rate 7 mL/min (>60); Glucose 118 mg/dL (70-99); HEMOLYSIS < 15 (0-50); Phosphorous 5.9 mg/dL (2.3-3.7); Potassium 5.1 mmol/L (3.4-5.1); Sodium 138 mmol/L (137-145)
[2025-08-14 10:21] LABS: Percent Iron Saturation 48 % (20-50); Total Iron Binding Capacity 219 ug/dL (261-462)
[2025-08-14 10:23] LABS: Transferrin 204 mg/dL (206-381)
[2025-08-14 10:27] LABS: Culture Indicated Urine Cult Not Indicated
[2025-08-14 10:29] LABS: Vitamin D 25 Hydroxy (D3) 39.0 ng/mL (30.0-100.0)
[2025-08-14 15:00] LABS: Ferritin 125 ng/mL (18-464)
== END ==
PROVIDERS: Family Provider Family Medicine; PCP Physician Assistant; Referring Provider Internal Medicine Nephrology; Visit Provider Internal Medicine Nephrology
DX: E83.39 Other disorders of phosphorus metabolism (principal); I10 Essential (primary) hypertension; N18.5 Chronic kidney disease, stage 5; D63.1 Anemia in chronic kidney disease; N18.9 Chronic kidney disease, unspecified; N25.81 Secondary hyperparathyroidism of renal origin
CPT/HCPCS: 36415; 80069; 81001; 82306; 82728; 83540; 83550; 83970; 85027

== ENCOUNTER → 2025-08-14 14:07 | Outpatient (CLI) | payer MEDICARE, SELFPAY ==
[2020-06-06 15:00] VITALS: BMI 24.6
[2025-08-14 14:11] VITALS: BP 146/73; PULSE 78; RESP 18; TEMP 36.9; O2SAT 99
[2025-08-14] MEDS: EPOETIN ALFA-EPBX 20,000 UNIT/ML VIAL 20000 UNIT SUBCUT (14:24)
== END ==
LOC: ONC 14:07
PROVIDERS: Family Provider Family Medicine; PCP Physician Assistant; Referring Provider Internal Medicine Nephrology; Visit Provider Internal Medicine Nephrology
DX: N18.5 Chronic kidney disease, stage 5 (principal); D63.1 Anemia in chronic kidney disease; E83.39 Other disorders of phosphorus metabolism; I10 Essential (primary) hypertension; N18.9 Chronic kidney disease, unspecified; N25.81 Secondary hyperparathyroidism of renal origin
CPT/HCPCS: 36415; 80069; 81001; 82306; 82728; 83540; 83550; 83970; 85027; 96372; Q5106

== ENCOUNTER → 2025-08-28 08:36 | Outpatient (CLI) | payer MEDICARE, SELFPAY ==
[2020-06-06 15:00] VITALS: BMI 24.6
[2025-08-28 10:04] LABS: Hematocrit 28.4 % (41-53); Hemoglobin 9.5 g/dL (13.5-17.5)
[2025-08-28 10:24] LABS: HEMOLYSIS < 15 (0-50); Iron 152 ug/dL (49-181)
[2025-08-28 10:36] LABS: Total Iron Binding Capacity 205 ug/dL (261-462); Transferrin 200 mg/dL (206-381)
[2025-08-28 10:44] LABS: Percent Iron Saturation 74 % (20-50)
[2025-08-28 10:57] LABS: Ferritin 109 ng/mL (18-464)
== END ==
PROVIDERS: Family Provider Family Medicine; PCP Physician Assistant; Referring Provider Internal Medicine Nephrology; Visit Provider Internal Medicine Nephrology
DX: N18.5 Chronic kidney disease, stage 5 (principal); D63.1 Anemia in chronic kidney disease
CPT/HCPCS: 36415; 82728; 83540; 83550; 85014; 85018

== ENCOUNTER → 2025-08-28 13:30 | Outpatient (CLI) | payer MEDICARE, SELFPAY ==
[2020-06-06 15:00] VITALS: BMI 24.6
[2025-08-28 13:37] VITALS: BP 137/66; PULSE 71; RESP 18; TEMP 36.5; O2SAT 98
[2025-08-28] MEDS: EPOETIN ALFA-EPBX 20,000 UNIT/ML VIAL 20000 UNIT SUBCUT (14:11)
== END ==
LOC: ONC 13:30
PROVIDERS: Family Provider Family Medicine; PCP Physician Assistant; Referring Provider Internal Medicine Nephrology; Visit Provider Internal Medicine Nephrology
DX: N18.5 Chronic kidney disease, stage 5 (principal); D63.1 Anemia in chronic kidney disease
CPT/HCPCS: 36415; 82728; 83540; 83550; 85014; 85018; 96372; Q5106

== ENCOUNTER → 2025-09-11 12:36 | Outpatient (CLI) | payer MEDICARE, SELFPAY ==
[2020-06-06 15:00] VITALS: BMI 24.6
[2025-09-11 12:57] LABS: Hematocrit 28.1 % (41-53); Hemoglobin 9.4 g/dL (13.5-17.5)
== END ==
PROVIDERS: Family Provider Family Medicine; PCP Physician Assistant; Referring Provider Internal Medicine Nephrology; Visit Provider Internal Medicine Nephrology
DX: D64.9 Anemia, unspecified (principal); N18.30 Chronic kidney disease, stage 3 unspecified; D63.1 Anemia in chronic kidney disease; N18.5 Chronic kidney disease, stage 5
CPT/HCPCS: 36415; 85014; 85018

== ENCOUNTER → 2025-09-11 12:56 | Outpatient (CLI) | payer MEDICARE, SELFPAY ==
[2020-06-06 15:00] VITALS: BMI 24.6
[2025-09-11 13:04] VITALS: BP 124/61; PULSE 75; RESP 12; TEMP 36.9; O2SAT 99
[2025-09-11] MEDS: EPOETIN ALFA-EPBX 20,000 UNIT/ML VIAL 20000 UNIT SUBCUT (13:23)
== END ==
LOC: ONC 12:56
PROVIDERS: Family Provider Family Medicine; PCP Physician Assistant; Referring Provider Internal Medicine Nephrology; Visit Provider Internal Medicine Nephrology
DX: N18.5 Chronic kidney disease, stage 5 (principal); D63.1 Anemia in chronic kidney disease
CPT/HCPCS: 36415; 85014; 85018; 96372; Q5106

== ENCOUNTER → 2025-09-25 11:48 | Outpatient (CLI) | payer MEDICARE, SELFPAY ==
[2020-06-06 15:00] VITALS: BMI 24.6
[2025-09-25 12:04] LABS: Hematocrit 28.8 % (41-53); Hemoglobin 9.7 g/dL (13.5-17.5)
== END ==
PROVIDERS: Family Provider Family Medicine; PCP Physician Assistant; Referring Provider Internal Medicine Nephrology; Visit Provider Internal Medicine Nephrology
DX: N18.5 Chronic kidney disease, stage 5 (principal); D63.1 Anemia in chronic kidney disease
CPT/HCPCS: 36415; 85014; 85018

== ENCOUNTER → 2025-09-25 14:24 | Outpatient (CLI) | payer MEDICARE, SELFPAY ==
[2020-06-06 15:00] VITALS: BMI 24.6
[2025-09-25 14:32] VITALS: BP 141/81; PULSE 68; RESP 16; TEMP 36.4; O2SAT 100
[2025-09-25] MEDS: EPOETIN ALFA-EPBX 20,000 UNIT/2 ML VIAL 20000 UNIT SUBCUT (14:44)
== END ==
LOC: ONC 14:24
PROVIDERS: Family Provider Family Medicine; PCP Physician Assistant; Referring Provider Internal Medicine Nephrology; Visit Provider Internal Medicine Nephrology
DX: N18.5 Chronic kidney disease, stage 5 (principal); D63.1 Anemia in chronic kidney disease
CPT/HCPCS: 36415; 85014; 85018; 96372; Q5106

== ENCOUNTER → 2025-10-09 14:13 | Outpatient (CLI) | payer MEDICARE, SELFPAY ==
[2020-06-06 15:00] VITALS: BMI 24.6
[2025-10-09 14:31] LABS: Hematocrit 30.3 % (41-53); Hemoglobin 10.0 g/dL (13.5-17.5)
== END ==
PROVIDERS: Family Provider Family Medicine; PCP Physician Assistant; Referring Provider Internal Medicine Nephrology; Visit Provider Internal Medicine Nephrology
DX: N18.5 Chronic kidney disease, stage 5 (principal); D63.1 Anemia in chronic kidney disease
CPT/HCPCS: 36415; 85014; 85018

== ENCOUNTER → 2025-10-09 14:28 | Outpatient (CLI) | payer MEDICARE, SELFPAY ==
[2020-06-06 15:00] VITALS: BMI 24.6
[2025-10-09 14:38] VITALS: BP 144/72; PULSE 67; RESP 16; TEMP 36.4; O2SAT 99
[2025-10-09] MEDS: EPOETIN ALFA-EPBX 20,000 UNIT/2 ML VIAL 20000 UNIT SUBCUT (14:50)
== END ==
LOC: ONC 14:28
PROVIDERS: Family Provider Family Medicine; PCP Physician Assistant; Referring Provider Internal Medicine Nephrology; Visit Provider Internal Medicine Nephrology
DX: N18.5 Chronic kidney disease, stage 5 (principal); D63.1 Anemia in chronic kidney disease
CPT/HCPCS: 36415; 85014; 85018; 96372; Q5106

== ENCOUNTER → 2025-10-23 13:53 | Outpatient (CLI) | payer MEDICARE, SELFPAY ==
[2020-06-06 15:00] VITALS: BMI 24.6
[2025-10-23 14:11] LABS: Hematocrit 28.6 % (41-53); Hemoglobin 9.6 g/dL (13.5-17.5)
== END ==
PROVIDERS: Family Provider Family Medicine; PCP Physician Assistant; Referring Provider Internal Medicine Nephrology; Visit Provider Internal Medicine Nephrology
DX: N18.5 Chronic kidney disease, stage 5 (principal); D63.1 Anemia in chronic kidney disease
CPT/HCPCS: 36415; 85014; 85018

== ENCOUNTER → 2025-10-23 14:12 | Outpatient (CLI) | payer MEDICARE, SELFPAY ==
[2020-06-06 15:00] VITALS: BMI 24.6
--- OUTSIDE RECORDS SUMMARY | 2025-10-23 14:15 | XMS_ITS | Encounter Summary ---
Author Organization [facility] Address [address] [place] [address] Care Team Providers Care Precinct Commanding Officer Name Role Phone García Lim Primary Care Provider [phone] Encounter Details Date Type Department Care Team (Latest Contact Info) Description 01/04/2025 Orders Only [facility] Nephrology [place] [address] [facility] [place] [address] April Trujillo MD [address] [place] [phone] Chronic kidney disease (CKD), stage V (CMS/HCC); Anemia of chronic kidney failure, stage 5 (CMS-HCC); Essential hypertension; Secondary hyperparathyroidism of renal origin ([facility]); 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 No 01/11/2024 Humiliation, Afraid, Rape, and Kick questionnair e Answer Date Recorded Within the last year, have y ou been afraid of your partner or ex-partner? No 01/11/2024 Within the last year, have y ou been humiliated or emotionally abused in other ways by your partner or ex-partner? No Within the last year, have y ou been kicked, hit, slapped, or otherwise physically hurt by your partner or ex-partner? No 01/11/2024 Within the last year, have y ou been raped or forced to have any kind of sexual activity by your partner or ex-partner? No 01/11/2024 AUDIT-C Answer Date Recorded Q1: How often do you have a drink containing alc ohol? 2-3 times a week 2024 Q2: How many drinks containi ng alcohol do you have on a typical day when you are drinking? 1 or 2 2024 Q3: How often do you have si x or more drinks on one occasion? Never 2024 Overall Financial Resource Strain (CARDIA) Answe r Date Recorded How hard is it for you to pa y for the very basics like food, housing, medical care, and heating? Not hard at all 01/11/2024 Hunger Vital Sign Answer Date Recorded Within the past 12 months, y ou worried that your food would run out before you got the money to buy more. Never true 01/11/20 24 Within the past 12 months, t he food you bought just didn't last and you didn't have money to get more. Never true 01/11/2024 PRAPARE - Transportation Answer Date Re corded In the past 12 months, has l ack of transportation kept you from medical appointments or from getting medications? No 12/23 In the past 12 months, has l ack of transportation kept you from meetings, work, or from getting things needed for daily living? No 01/11/2024 Housing Stability Vital Sign Answer Bryan e Recorded In the last 12 months, was t here a time when you were not able to pay the mortgage or rent on time? No 01/11/2024 Number of Places Lived in the Last Year Not on f ile 01/11/2024 In the last 12 months, was t here a time when you did not have a steady place to sleep or slept in a skilled nursing (including now)? No 01/11/2024 Sex and Gender Information Value Date Recorded Sex Assigned at Male 01/11/2024 1:02 AM PDT Legal Sex Male 2:50 PM PDT Gender Identity Male 01/11/2024 1:02 AM PDT Sexual Orientation Straight 01/11/2024 1: 02 AM PDT documented as of this encounter Plan of Treatment Upcoming Encounters Date Type Department Care Team (Late st Contact Info) Description 03/12/2026 1:00 PM PDT Office Visit [facility] Cardiology [address], [place] [address] Sonam Reyna DO [address] [place] [address] [address] [place], [place] [id number] documented as of this encounter Procedures Procedure Name Priority Date/Time Associated Diagnosis Comments URINALYSIS, REFLEX MICROSCOPIC AND CULTURE IF INDICATED Routine 10/12/2024 Chronic kidney disease (CKD), stage V (CMS/HCC) Anemia of chronic kidney failure, stage 5 (CMS-HCC) Essential hypertension Secondary hyperparathyroidism of renal origin (CMS-HCC) 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 PROTEIN CREATININE RATIO, URINE Routine 10/12/2024 Chronic kidney disease (CKD), stage V (CMS/HCC) Anemia of chronic kidney failure, stage 5 (CMS-HCC) Essential hypertension Secondary hyperparathyroidism of renal origin (CMS-HCC) 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 MICROALBUMIN/CREATININE RATIO, URINE Routine 10/12/2024 Chronic kidney disease (CKD), stage V (CMS/HCC) Anemia of chronic kidney failure, stage 5 (CMS-HCC) Essential hypertension Secondary hyperparathyroidism of renal origin (CMS-HCC) 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 IRON PROFILE (IRON AND TIBC) WITH FERRITIN Routine 10/11/2024 Chronic kidney disease (CKD), stage V (CMS/HCC) Anemia of chronic kidney failure, stage 5 (CMS-HCC) Essential hypertension Secondary hyperparathyroidism of renal origin (CMS-HCC) 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 COMPLETE BLOOD COUNT Routine 10/11/2024 Chronic kidney disease (CKD), stage V (CMS/HCC) Anemia of chronic kidney failure, stage 5 (CMS-HCC) Essential hypertension Secondary hyperparathyroidism of renal origin (CMS-HCC) 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 RENAL FUNCTION PANEL Routine 10/11/2024 Chronic kidney disease (CKD), stage V (CMS/HCC) Anemia of chronic kidney failure, stage 5 (CMS-HCC) Essential hypertension Secondary hyperparathyroidism of renal origin (CMS-HCC) 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 documented in this encounter Results * Protein creatinine ratio, urine (10/12/2024) Urine Urine specimen obtained by clean catch procedure / Unknown us April Trujillo MD LAB URINE ORDERABLES Final Resu Performing Organization Address [facility] Phone Number [address] [address], [place] [phone] * Microalbumin/creatinine ratio, urine (10/12/2024) Urine Urine specimen obtained by clean catch procedure / Unknown us April Trujillo MD LAB URINE ORDERABLES Final Resu Performing Organization Address [facility] de Phone Number [id number] [address], [place] [phone] * Urinalysis, reflex Microscopic and Culture if indicated (10/12/2024) Urine Urine specimen obtained by clean catch procedure / Unknown us April Trujillo MD LAB URINE ORDERABLES Final Resu lt Performing Organization Address [facility] de Phone Number [id number] [address], [place] [phone] * Complete blood count without diff (10/11/2024) Blood Venous blood / Unknown us April Trujillo MD LAB BLOOD ORDERABLES Final Resu Performing Organization Address [facility] de Phone Number [id number] [address], [place] [phone] * Iron Profile (Iron and TIBC) with Ferritin (10/11/2024) Blood Venous blood / Unknown us April Trujillo MD LAB BLOOD ORDERABLES Final Resu lt * Renal function panel (10/11/2024) Blood Venous blood / Unknown us April Trujillo MD LAB BLOOD ORDERABLES Final Resu lt documented in this encounter Visit Diagnoses Diagnosis Chronic kidney disease (CKD), stage V (CMS/HCC) Chronic kidney disease, Stage V Anemia of chronic kidney failure, stage 5 (CMS/HCC) Essential hypertension Unspecified essential hypertension Secondary hyperparathyroidism of renal origin Secondary hyperparathyroidism (of renal origin) 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
[2025-10-23] MEDS: EPOETIN ALFA-EPBX 20,000 UNIT/2 ML VIAL 20000 UNIT SUBCUT (14:42)
== END ==
PROVIDERS: Family Provider Family Medicine; PCP Physician Assistant; Referring Provider Internal Medicine Nephrology; Visit Provider Internal Medicine Nephrology
DX: N18.5 Chronic kidney disease, stage 5 (principal); D63.1 Anemia in chronic kidney disease
CPT/HCPCS: 36415; 85014; 85018; 96372; Q5106